=== PATIENT | female | born 1975 | race Caucasian/White ===

== ENCOUNTER → 2020-07-14 08:10 | Outpatient (CLI) | payer OTHER, SELFPAY ==
--- NOTE | ~2020-07-14 | MMUS_ITS ---
EXAMINATION: MM diagnostic ruperto BI w leatha, US breast BI limited HISTORY: Palpable breast lumps TECHNIQUE: Additional 3-D tomosynthesis images of the breasts were performed and synthetic 2-D images were generated. CAD analysis was submitted and interpreted. High resolution bilateral breast ultraso und was performed. COMPARISON: Comparison to multiple prior studies sequentially, with oldest reviewed study dated 09/02. BREAST PARENCHYMAL COMPOSITION: Breast composed of scattered areas of fibroglandular density. FINDINGS: MAMMOGRAPHIC FINDINGS: There is a tissue marker in the upper outer quadrant of the left breast consistent with previous biop sy site. This finding is unchanged compared with 02/02/2019. There are no new masses, calcifications o r architectural distortion. ULTRASOUND: Limited right breast ultrasound: Normal heterogeneous echotexture without focal solid or cystic mass. Limited left breast ultrasound: At 12:00, 4 cm from the nipple, there is a cluster of cysts measuring up to 4 mm in aggregate. At 12:00, 3 cm from the nipple, there is an irregular hypoechoic structure containing a tissue marker, consistent with fibrosis at previous biopsy site. This was biopsy proven benign per history. IMPRESSION: 1. No mammographic evidence for malignancy in either breast. 2. Routine yearly screening mammogram and regular clinical breast examination are recommended. BI-RADS Category 2: Benign finding(s). Reviewed, dictated and finalized at location A. CTOR OF ENTERTAINMENT IMPRESSION: 1. No mammographic evidence for malignancy in either breast. 2. Routine yearly screening mammogram and regular clinical breast examination a re recommended. BI-RADS Category 2: Benign finding(s).
== END ==
PROVIDERS: PCP Nurse Practitioner Family; Visit Provider Nurse Practitioner Family
DX: N63.0 Unspecified lump in unspecified breast (principal)
CPT/HCPCS: 76642; 77062; 77066; G0279

== ENCOUNTER 2021-03-19 13:05 | Outpatient (CLI) | payer OTHER, SELFPAY ==
--- NOTE | ~2021-03-19 | US_ITS ---
EXAMINATION: US thyroid EXAM DATE: 03/19/2021 13:21 INDICATION: Other specified symptoms and signs involving the circulatory. Throat fullness, hypothyroi dism. TECHNIQUE: Multiple grayscale and Doppler images of the thyroid were obtained (by a technologist who performed the scan) and subsequently reviewed. Individual nodules and recommendations may be reporte d in accordance with TI-RADS system as designated by the 2017 ACR White Paper TI-RADS committee. The re is no prior study for comparison. FINDINGS: The right thyroid lobe measures 3.0 x 0.8 x 0.8 cm, the left measuring 2.0 x 1.0 x 0.6 cm. There is h omogeneous thyroid echogenicity. No suspicious focal thyroid nodules are identified. IMPRESSION: 1. Unremarkable thyroid ultrasound exam. Reviewed, dictated and finalized at location B.
== END 2021-03-19 13:06 ==
PROVIDERS: PCP Nurse Practitioner Family; Visit Provider Nurse Practitioner Family
DX: R09.89 Other specified symptoms and signs involving the circulatory and respiratory systems (principal); E03.9 Hypothyroidism, unspecified
CPT/HCPCS: 76536

== ENCOUNTER 2024-10-26 07:19 | Outpatient (CLI) | payer OTHER, SELFPAY ==
--- NOTE | ~2024-10-26 | MM_ITS ---
PROCEDURE: MM SCREENING SHELBY BI W MARYAM INDICATION: Asymptomatic, referred for screening mammogram COMPARISON: 02/02/2019 through 08/18/2009 TECHNIQUE: Digital breast tomosynthesis craniocaudal and mediolateral oblique views of Both breasts w ere obtained with computer-aided detection to assist in interpretation of the study. FINDINGS: There are scattered areas of fibroglandular density. No focal dominant mass, architectural distortion, or suspicious microcalcifications are identified. There are no features to suggest malignancy. IMPRESSION: No evidence of malignancy in the breast. Recommend continued screening mammography BI-RADS 1, NEGATIVE Reviewed, dictated and finalized at location B.
--- OUTSIDE RECORDS SUMMARY | 2024-10-26 07:24 | XMS_ITS | Clinical Summary ---
Author Organization [facility] Address [address], [facility] [address] [place] [address] Phone Care Team Providers Care Head Of Acquisitions Name Role Phone Lanette Greene DIRECTOR CHILD ABUSE THERAPY Primary Care Provider [phone] Reg Dang MD Unavailable Allergies Active Allergy Reactions Criticality Noted Date Comments Amlodipine Swelling Low 04/14/2018 Dimethicone-Zinc Oxide Unknown 11/29/2016 Hydrochlorothiazide Anaphylaxis,Swelling High 2020 Ketotifen Fumarate Itching Low 04/03/2018 Latex Rash Low 02/11/2018 Levothyroxine Anaphylaxis,Swelling High 02/28/2021 Lisinopril Other (see Comments) 04/14/2018 Metformin Swelling,Other (see Comments) High 02/09/2019 Patient stated that there are swelling in the traot area. Naproxen Other (see Comments),Unknown 04/07/2014 Ear ringing Pantoprazole Other (see Comments) 07/01/2021 Penicillins Unknown 11/29/2016 Vitamin B12 Unknown 11/29/2016 Medications White Petrolatum-Mine ral Oil (Refresh Lacri-Lube) Ointment as needed. Active thyroid (ARMOUR) 30 MG Tablet Take 30 mg by mouth daily. 04/07/2024 Active POTASSIUM PO Take 1 Tablet by mouth daily. 03/26/2022 Active Cinnamon 500 MG Capsule 07/24/2021 Active Cholecalciferol (Dialyvite Vitamin D 5000) 125 mcg Capsule Take 125 mcg by mouth daily. Active Apple Cider Vinegar 300 MG Tablet 08/13/2021 Active fluticasone (FLONASE) 50 MCG/ACT Suspension 1-2 Sprays by Nasal route daily. 07/28/2021 Active Multi Vitamin/Mineral s Tablet Active triamcinolone acetonide (NASACORT) 55 MCG/ACT Aerosol 2 Sprays by Nasal route. Active loratadine (CLARITIN) 10 MG Tablet Take 10 mg by mouth daily. Active ELITE ZINC PO Active Magnesium Oxide -Mg Supplement 250 MG Tablet Take 250 mg by mouth. Active losartan (COZAAR) 100 MG Tablet Take 100 mg by mouth daily. 04/23/2024 Active Lancets (OneTouch Delica Plus [id number]) Misc TEST D 02/08/2019 Act alesia Lancets (OneTouch Delica Plus [id number]) Misc TEST ONCE DAILY DIRECTED 02/02/2020 Active Ascorbic Acid (Vitamin C) 500 MG Chewable Tablet Take 2 Tablets by mouth. 06/23/2018 Active Blood Glucose Monitoring Suppl (ONE TOUCH ULTRA 2) w/Device Kit TEST D 02/08/2019 Active DULoxetine (CYMBALTA) [address] Particles Take 60 mg by mouth daily. Active Ferrous Sulfate 90 (18 Fe) MG Tablet 11/04/2021 Active Active Problems Problem Noted Date Diagnosed Date HTN (hypertension) 07/29/2024 Iron deficiency anemia, unspecified 06/07/2024 Elevated blood pressure reading 05/28/2024 Anemia of unknown etiology 05/28/2024 Thrombocytosis 05/28/2024 Encounters Date Type Department Care Team Description 07/29/2024 8:50 AM PIPELINE GANG SUPERVISOR Lab [facility] [address] [phone] Lab, [facility] Iron deficiency anemia, unspecified iron deficiency anemia type; Thrombocytosis 07/29/2024 8:00 AM PIPELINE GANG SUPERVISOR Office Visit [facility] [address] [phone] Tala Bautista, DIRECTOR CHILD ABUSE THERAPY, MARINE STRUCTURAL WELDER Iron deficiency anemia due to chronic blood loss (Primary Dx); Thrombocytosis 07/29/2024 Travel from Last 3 Months Family History Medical History Relation Name Comments Diabetes Brother 2 Heart Disease Brother 2 Hypertension Brother 2 Colon Cancer Father Hypertension Mother Relation Name Status Comments Brother 1 Alive Brother 2 Alive Father Mother Alive Social History Tobacco Use Types Packs/Day Years Used Date Smoking Tobacco: Never Smokeless Tobacco: Never Tobacco Cessation:Counseling Given: Not Answered Alcohol Use Standard Drinks/Week Comments Never 0 (1 standard drink = 0.6 oz pur e alcohol) Comments Unknown Sex and Gender Information Value Date Recorded Sex Assigned at Not on file Legal Sex Female 2:38 PM CDT Gender Identity Not on file Sexual Orientation Not on file Last Filed Vital Signs Vital Sign Reading Time Taken Comments Blood Pressure 148/88 07/29/2024 7:58 AM PIPELINE GANG SUPERVISOR Pulse 95 07/29/2024 7:58 AM PIPELINE GANG SUPERVISOR Temperature 36.8 C (98.2 F) 07/29/2024 7:58 AM PIPELINE GANG SUPERVISOR Respiratory Rate 18 07/29/2024 7:58 AM PIPELINE GANG SUPERVISOR Oxygen Saturation 99% 07/29/2024 7:58 AM PIPELINE GANG SUPERVISOR Inhaled Oxygen Concentration - - Weight 69.2 kg (152 lb 9.6 oz) 07/29/2024 7:58 A M PIPELINE GANG SUPERVISOR Height 149.9 cm (4' 11) 07/29/2024 7:58 AM PIPELINE GANG SUPERVISOR Body Mass Index 30.82 07/29/2024 7:58 AM PIPELINE GANG SUPERVISOR Plan of Treatment Upcoming Encounters Date Type Department Care Team (Late st Contact Info) Description 10/28/2024 8:00 AM CDT Office Visit [facility] [address] [phone] Reg Dang MD [address] [place] [address] [place] [phone] Health Maintenance Due Date Last Done Comments Hepatitis C Virus (HCV) Screening 1976 Mammogram 1976 TdaP Immunization 1976 Hepatitis B Immunization (1 of 3 - 19+ 3-dose series) 01/25/1995 Pap Smear 01/25/1997 Cervical Cancer Screening (CCS) 01/25/2006 HPV/Cotest 01/25/2006 Discussion re Starting/Frequ ency of Mammograms 2016 Colonoscopy 01/25/2021 Colorectal Cancer Screening 01/25/2021 SARS-COV-2 Immunization ( season) 2024 Influenza Immunization (Seas on Ended) 2025 Respiratory Syncytial Virus (RSV) Immunization (Adult) (1 - 1-dose 75+ series) 01/25/2051 Human Papillomavirus (HPV) Immunization Aged Out No longer eligible b ased on patient's age to complete this topic Meningococcal Immunization (ACWY) Aged Out No longer eligible based on patient's age to complete this topic Pneumococcal Immunization Combined Aged Out No longer eligible based on patient's age to complete this topic Rotavirus Immunization Aged Out No lo nger eligible based on patient's age to complete this topic Procedures Procedure Name Priority Date/Time Associated Diagnosis Comments CBC WITH AUTO DIFF OH Routine 07/29/2024 8:51 AM PIPELINE GANG SUPERVISOR CMP (COMPREHENSIVE METABOLIC PANEL) Routine 07/29/2024 8:51 AM PIPELINE GANG SUPERVISOR Iron deficiency anemia, unspecified iron deficiency anemia type Thrombocytosis IRON W/ IRON BINDING CAPACITY OH Routine 07/29/2024 8:51 AM PIPELINE GANG SUPERVISOR Iron deficiency anemia, unspecified iron deficiency anemia type Thrombocytosis FERRITIN Routine 07/29/2024 8:51 AM PIPELINE GANG SUPERVISOR Iron deficiency anemia, unspecified iron deficiency anemia type Thrombocytosis from Last 3 Months Results * IRON W/ IRON BINDING CAPACITY OH (07/29/2024 8:51 AM PIPELINE GANG SUPERVISOR) IRON 79 50 - 212 ug/dL CANCER MUD MIXER OPERATOR [facility] UIBC 290 155 - 355 ug/dL [facility] TIBC 369 261 - 478 ug/dl [facility]UD [facility]ER [facility] % Saturation 21 20 - 50 % [facility]UD [facility] 07/29/2024 8:51 AM PIPELINE GANG SUPERVISOR Narrative CANCER MUD MIXER OPERATOR [facility] - 07/29/2024 9:32 AM PIPELINE GANG SUPERVISOR Release to patient->Immediate Tala Bautista APRN, MARINE STRUCTURAL WELDER LAB SEND OUTS Final Result CANCER MUD MIXER OPERATOR [facility] [place] [address], * (ABNORMAL) CBC WITH AUTO DIFF [place] (07/29/2024 8:51 AM PIPELINE GANG SUPERVISOR) WBC 7.8 4.0 - 10.0 10*3/uL CANCER MUD MIXER OPERATOR [facility] HGB 13.1 11.2 - 15.7 g/dL CANCER MUD MIXER OPERATOR [facility] HCT 39.9 34.1 - 44.9 % CANCER MUD MIXER OPERATOR [facility] PLT 326 163 - 369 10*3/uL CANCER MUD MIXER OPERATOR [facility] MPV 9.4 9.4 - 12.4 fL CANCER MUD MIXER OPERATOR [facility] RBC 4.54 3.93 - 5.22 10*6/uL CANCER MUD MIXER OPERATOR [facility] MCV 88 79 - 95 fL CANCER MUD MIXER OPERATOR [facility] MCH 28.9 25.6 - 32.2 pg CANCER MUD MIXER OPERATOR [facility] MCHC 32.8 32.2 - 36.5 g/dL CANCER MUD MIXER OPERATOR [facility] RDW 17.0(H) 11.6 - 14.4 % CANCER MUD MIXER OPERATOR [facility] Neutrophils % 53.0 36.0 - 66.0 % CANCER MUD MIXER OPERATOR [facility] Lymphocytes % 37.0 19.0 - 40.0 % CANCER MUD MIXER OPERATOR [facility] Monocytes % 6.3 4.1 - 12.1 % CANCER MUD MIXER OPERATOR [facility] Eosinophils % 2.8 0.0 - 3.5 % CANCER MUD MIXER OPERATOR [facility] Basophils % 0.5 0.0 - 1.0 % CANCER MUD MIXER OPERATOR [facility] Absolute Neutrophils 4.1 1.4 - 6.6 10*3/uL CANCER MUD MIXER OPERATOR [facility] Absolute Lymphocytes 2.9 0.8 - 4.0 10*3/uL CANCER MUD MIXER OPERATOR [facility] Absolute Monocytes 0.5 0.2 - 1.2 10*3/uL CANCER MUD MIXER OPERATOR [facility] Absolute Eosinophils 0.2 0.0 - 0.4 10*3/uL CANCER MUD MIXER OPERATOR [facility] Absolute Basophils 0.0 0.0 - 0.1 10*3/uL CANCER MUD MIXER OPERATOR [facility] 07/29/2024 8:51 AM PIPELINE GANG SUPERVISOR us Tala Bautista DIRECTOR CHILD ABUSE THERAPY, MARINE STRUCTURAL WELDER LAB SEND OUTS Final Result CANCER MUD MIXER OPERATOR [facility] [place] [address], [place] [phone] * FERRITIN (07/29/2024 8:51 AM PIPELINE GANG SUPERVISOR) Ferritin 249 11 - 307 ng/mL [facility] MUD MIXER OPERATOR [facility] Blood 07/29/2024 8:51 AM PIPELINE GANG SUPERVISOR Narrative CANCER MUD MIXER OPERATOR [facility] - 07/29/2024 3:23 PM PIPELINE GANG SUPERVISOR Release to patient->Immediate Tala Bautista DIRECTOR CHILD ABUSE THERAPY, MARINE STRUCTURAL WELDER CHEMISTRY ORDERABLES Final Result CANCER MUD MIXER OPERATOR [facility] [place] [address], * (ABNORMAL) CMP (COMPREHENSIVE METABOLIC PANEL) (07/29/2024 8:51 AM PIPELINE GANG SUPERVISOR) Glucose 128(H) 70 - 105 mg/dL [facility] Blood Urea Nitrogen 12 7 - 25 mg/dL [facility] MUD [facility]IXER [facility] Creatinine 0.6 0.6 - 1.2 mg/dL [facility] MUD [facility]IX[facility] Sodium 137 136 - 145 mEq/L [facility] MUD [facility] Potassium 4.3 3.5 - 5.1 mEq/L [facility] MUD [facility] Chloride 99 98 - 107 mEq/L [facility] MUD [facility] Bicarbonate 25 21 - 31 mEq/L [facility] MUD [facility]IX[facility] Total Bilirubin 0.3 0.3 - 1.0 mg/dL [facility] MUD [facility]IX[facility] Alk. Phosphatase 69 34 - 104 U/L [facility] MUD [facility]IX[facility] Aspartate Aminotransferase 27 13 - 39 U/L [facility] MUD [facility] Alanine Aminotransferase 33 7 - 52 U/L [facility] MUD [facility]IX[facility] Total Protein 7.0 6.4 - 8.9 g/dL [facility] MUD [facility]IX[facility] Albumin 4.5 3.5 - 5.7 g/dL [facility] MUD [facility]IX[facility] Calcium 9.5 8.6 - 10.3 mg/dL [facility] MUD MIXER [facility] Anion Gap 17.3(H) 7.0 - 15.0 mEq/L [facility] MUD [facility]IX[facility] Globulin 2.5 2.0 - 3.5 g/dL CANCER MUD MIXER OPERATOR [facility] EGFR 110 >60 ml/min/1. 73m2 CANCER MUD MIXER OPERATOR [facility] Comment: This eGFR is calculated using 2020 CKD-EPI Creatinine equation without race modifier based on the NKF-ASN task force recommendations Blood 07/29/2024 8:5 1 AM PIPELINE GANG SUPERVISOR Narrative CANCER MUD MIXER OPERATOR [facility] - 07/29/2024 9:32 AM PIPELINE GANG SUPERVISOR Release to patient->Immediate IS THE PATIENT REQUIRED TO BE FASTING FOR 8 HOURS?->No us Tala Bautista DIRECTOR CHILD ABUSE THERAPY, MARINE STRUCTURAL WELDER CHEMISTRY ORDERABLES Final Result CANCER MUD MIXER OPERATOR [facility] [place] [address], [place] [phone] from Last 3 Months Insurance Care Teams Head Of Acquisitions Relationship Specialty Start Date End Date Lanette Greene [place] [address] [place] [address] PCP - General Advanced Practice Nurse 05/13/24 Reg Dang MD [address] [place] [phone] Consulting Physician Oncology 05/13/24
--- OUTSIDE RECORDS SUMMARY | 2024-10-26 07:24 | XMS_ITS | Clinical Summary ---
Author Organization [facility] Address [address] [place] [address] Care Team Providers Care Electronic Equipment Repairer Name Role Phone Koby Hernandez Primary Care Provider Allergies Active Allergy Reactions Criticality Noted Date Comments Amlodipine Swelling Low 04/24/2018 Ketotifen Fumarate Itching Low 04/03/2018 Latex Rash Low 02/11/2018 Metformin Swelling,Other (See Comments) High 03/11/2019 Patient stated that there are swelling in the traot area. Naproxen Other (See Comments) 02/11/2018 Ear ringing Vitamin B12 With Intrinsic Factor Anaphylaxis High 02/11/2018 Medications DULoxetine (CYMBALTA) 60 mg Capsule, Delayed Release(E.C.) TAKE 1 CAPSULE BY MOUTH EVERY DAY 1 8 Active SYNTHROID 50 mcg tablet 8 Active ascorbic acid (VITAMIN C ORAL) Take by mouth daily. Active FLAXSEED ORAL by [facility].(Non-Drug ; Combo Route) route daily. Active Lactobacillus acidophilus (ACIDOPHILUS) Tablet, Chewable Take 2 Tablets by mouth daily. Active hydroCHLOROthiaz ursula 25 mg tablet 1 8 Active metoprolol tartrate (LOPRESSOR) 25 mg tablet TK 1/2 T PO BID 1 9 Active meclizine (ANTIVERT) 25 mg tablet 0 9 Active ONETOUCH ULTRA BLUE TEST STRIP Strip TEST D 3 9 Active ONETOUCH ULTRA2 METER TEST D 0 9 Active glimepiride (AMARYL) 1 mg tablet TK 1 T PO QAM BEFORE BREAKFAST 5 9 Active ONETOUCH DELICA PLUS LANCET 30 gauge TEST D 3 9 Active Active Problems Problem Noted Date Diagnosed Date Fibroadenoma of breast, left 02/24/2018 Mastodynia 02/17/2018 Resolved Problems Problem Noted Date Diagnosed Date Resolved Date Abnormal ultrasound of breast 02/17/2018 10/01/2018 Abnormal mammogram 02/17/2018 9 Lump of left breast 02/17/2018 10/02/19 19 Social History Tobacco Use Types Packs/Day Years Used Date Smoking Tobacco: Never Smokeless Tobacco: Never Alcohol Use Standard Drinks/Week Comments No 0 (1 standard drink = 0.6 oz pur e alcohol) Comments No Sex and Gender Information Value Date Recorded Sex Assigned at Not on file Legal Sex Female 4:12 PM CDT Gender Identity Not on file Sexual Orientation Not on file Last Filed Vital Signs Vital Sign Reading Time Taken Comments Blood Pressure 127/97 03/11/2019 2:26 PM CDT Pulse 78 03/11/2019 2:26 PM CDT Temperature 36.8 C (98.3 F) 03/11/2019 2:26 PM CDT Respiratory Rate - - Oxygen Saturation 97% 03/11/2019 2:26 PM CDT Inhaled Oxygen Concentration - - Weight 71.5 kg (157 lb 9.6 oz) 03/11/2019 2:26 P M CDT Height 149.9 cm (4' 11) 03/11/2019 2:26 PM CDT Body Mass Index 31.83 03/11/2019 2:26 PM CDT Plan of Treatment Health Maintenance Due Date Last Done Comments DTAP/TDAP/TD VACCINES (1 - Tdap) 01/25/1995 HEPATITIS B VACCINES (1 of 3 - 19+ 3-dose series) 01/25/1995 HPV/Cotest (21-29) 01/25/1997 CERVICAL CANCER SCREENING 01/25/2006 HPV/Cotest (30-65) 01/25/2006 PAP SMEAR 01/25/2006 BREAST CANCER SCREENING 02/10/2020 02/10/20 19, 02/09/2018, 01/30/2018 COLORECTAL SCREENING 01/25/2021 Colorectal Cancer Screening 01/25/2021 FIT-DNA Q 3 years 01/25/2021 FIT/FOBT Q 1 year 01/25/2021 Flex Sig/CT Colonography Q 5 years 01/25/2021 INFLUENZA VACCINE (#1) 2023 Procedures Procedure Name Priority Date/Time Associated Diagnosis Comments MAMMOGRAM REPORT Routine 02/09/2019 from Last 3 Months or Most Recently Relevant to Health Maintenance Results * MAMMOGRAM REPORT (02/09/2019) us Abstract Provider MAMMO ORDERABLES Edited Result - Final from Last 3 Months or Most Recently Relevant to Health Maintenance Insurance Care Teams Electronic Equipment Repairer Relationship Specialty Start Date End Date [place] [address] PCP - General Family Practice 04/24/18
== END 2024-10-26 07:20 | disposition home or self-care (01) ==
LOC: CHSIMG 07:21
PROVIDERS: PCP Nurse Practitioner; Visit Provider Nurse Practitioner
DX: Z12.31 Encounter for screening mammogram for malignant neoplasm of breast (principal)
CPT/HCPCS: 77063; 77067

== ENCOUNTER 2025-04-04 00:27 | Day surgery (SDC) | payer OTHER, SELFPAY ==
[2025-03-28 10:59] VITALS: BMI 30.6
--- NOTE | 2025-03-29 11:40 | SUR.PREOP ---
[facility] has started construction of its new state of the art ER which will open Spring 2026. With this, we anticipate parking may be a challenge for some our surgical patients and families. Parking spaces are limited but are available for all Surgical, obstetrics, and ER patients sharing this lot. If you arrive and find you are having a hard time finding a parking space, please note that we understand the challenges, please drive around the hospital and park near Hospital Entrance 1. When you enter this entrance, you can ask a volunteer to direct or take you back to the surgical waiting area to check in. We appreciate everyone?s understanding of these expected challenges while we build for your future. Report to the Outpatient Waiting Room, entrance under the green pavilion located off [address], at time 6AM_ on date _04/04/25_. Planned Procedure Time: _730AM__.? Time changes happen often and if your time is changed the preop area will call you the afternoon before. - You and your visitor will be asked to self-screen and do not enter if you have any COVID symptoms. Please call surgeon if you need to reschedule. - A mask is optional within the hospital at this time. Patients may have clear liquids (water, carbonated beverages, clear teas, apple juice) until 3 hours prior to surgery with a maximum of 20 ounces. - No food from midnight until time of surgery and no smoking, or chewing tobacco (or any form of nicotine). No chewing gum, candy or mints. Take only the following medications with a SIP of water on the morning of surgery: __Armour thyroid___ DO NOT STOP ANY OF YOUR OTHER PRESCRIPTION MEDICATIONS PRIOR TO SURGERY EXCEPT THE FOLLOWING Hold all vitamins and supplements for 3 days per anesthesiologist. Medications to discontinue per physician __none__ Date to take last dose of vitamins is _03/31/25___ Please no make-up, nail kinyarwanda, hairspray, perfume, deodorant, or body powder the day of surgery.? No jewelry (including any body piercings) or valuables the day of surgery, leave them at home.? Please take a shower or bath the night before, or the morning of, surgery with an antibacterial soap.? Wear comfortable, loose fitting clothing.? - Jewelry must be removed prior to entering the operating room.? Rings and piercings that are not removed may be cut off. - The hospital will not accept responsibility for valuables.? - Please leave all valuables, including medications, at home the day of surgery. If you are going home after surgery, a licensed six horse hitch driver must drive you home.? - NO public transportation without another adult if you receive anesthesia. - We recommend that an adult stay with you for 24 hours following discharge. - We also recommend that you do not drive, make important decision, drink alcoholic beverages, or take any drugs that were not prescribed by your health care provider for at least 24 hours after your discharge time. Follow any additional instructions given to you from your surgeon. Telephone instructions given to _Amy_and asked if any additional questions and then verbalized understanding. Patient advised to call surgeon office or pre surgery nurse liaison [phone] if any additional questions.
--- NOTE | 2025-04-03 15:54 | P.HP_ITS ---
H&P: HPI History of Present Illness Date/Time: 04/03/25 15:54 Chief Complaint: AUB Narrative: Amy is a 50yo G0, who presents for scheduled surgery. She has a normal pap 11/2024. She had not seen WILL CALL ORDER CLERK in many years and is VERY nervous for these types of appointment. She reports her cycles are regular, but have been very heavy in the last couple years. She does have cramping with her periods. She reports being diagnosed with severe iron def anemia, sees heme and had IV iron transfusions (recent hgb >12). Since the infusion, her periods actually seem to have lightened some, but still has clots. She denies any pelvic pain. She had blood work and WILL CALL ORDER CLERK US. She does how low iron, hormones are still normal range though. WILL CALL ORDER CLERK US showed 2.5cm fibroid; uterus slightly enlarged; did have thickened endometrium. She is occasionally sexually active, has h/o tubal ligation. Review of Systems Constitutional: Constitutional: Denies chills, Denies fever(s) and Denies headache(s) Eyes: Eyes: Denies change in vision ENT: Denies dizziness and Denies headache(s) Cardiovascular: Cardiovascular: Denies chest pain and Denies dyspnea Respiratory: Respiratory: Denies cough and Denies dyspnea Gastrointestinal: Gastrointestinal: Denies abdominal pain and Denies change in stool character Genitourinary: Genitourinary: Reports abnormal menses, Reports menorrhagia, Reports pelvic pain, Denies vaginal discharge, Denies vaginal odor and Denies vaginal pruritus Neurologic: Denies dizziness and Denies headache(s) Psychiatric: Psychiatric: Denies anxiety and Denies depression [facility] Past Medical History Medical History Idiopathic hypersomnia Depression Obesity Thyroid disorder Hypertension Headache, migraine Diabetes Arthritis Anxiety Anemia Allergies Surgical History Surgical History H/O tubal ligation Status post cryoablation fibrodemia in breast removed [place] teeth extracted Family History Family History (Updated 01/27/25 @ 10:55 by Hiram Jasso MA) Mother Colon cancer Hypertension Grandparent Alcoholism Skin cancer Breast cancer Father Liver cancer Hypertension Sibling Hypertension Heart disease Diabetes mellitus Aorta disorder brother Social History Social History Smoking status: Never smoker Alcohol intake: never Substance use: never Substance use type: does not use Do You Feel Safe in your Home?: Yes Lack of Transportation: No Lack of Food: Never True Current Housing: I Have Housing Concerned About Future Housing: No Difficulty Paying Gas/Electric Bills: No Difficulty Paying for Meds: No Currently Unemployed: No Education: Master's Degree or Higher Difficulty w/ Childcare or Family Care: No Living arrangements: with family Occupation/Education: occupation Additional occupation/education comments: homemaker Spiritual care concerns: No Meds Home Medications and Allergies Home Medications ?Medication ?Instructions ?Recorded ?Confirmed ?Type ascorbic acid (vitamin C) 500 mg 500 mg PO DAILY 12/2303/28/25 History capsule duloxetine 60 mg capsule,delayed 60 mg PO HS 12/23/24 03/28/25 History release ferrous sulfate 137 mg (45 mg 137 mg PO DAILY 12/23/24 03/28/25 History iron) tablet,extended release losartan 100 mg tablet 100 mg PO DAILY 12/23/2408/17 History lutein 20 mg capsule 20 mg PO DAILY 12/23/2408/17 History magnesium 250 mg tablet 250 mg PO DAILY 12/23/2408/17 History multivitamin 1 tablet PO DAILY 12/23/24 1 05/28/24 History thyroid (pork) 30 mg tablet 30 mg PO DAILY 12/23/24 History ([place] Thyroid) Allergies Allergy/AdvReac Type Severity Reaction Status Date / Time amlodipine Allergy Unknown throat Verified 03/28/25 10:57 swollen ketotifen Allergy Unknown swelling Verified 03/28/25 10:57 latex Allergy Unknown Rash Verified 03/28/25 10:57 Penicillins Allergy Unknown Unknown Verified 03/28/25 10:57 cyanocobalamin (vitamin B12) AdvReac Severe Anaphylaxis Verified 03/28/25 10:57 levothyroxine AdvReac Severe throat Verified 03/28/25 10:57 swelling metformin AdvReac Severe throat Verified 03/28/25 10:57 swelling hydrochlorothiazide AdvReac Intermediate throat Verified 03/28/25 10:57 swelling lisinopril AdvReac Intermediate Dizziness Verified 03/28/25 10:57 pantoprazole AdvReac Intermediate shaking Verified 03/28/25 10:57 and nerve pain dimethicone AdvReac Unknown Unknown Verified 03/28/25 10:57 zinc oxide AdvReac Unknown Unknown Verified 03/28/25 10:57 NAPROXEN SODIUM Allergy Mild RINGING IN Uncoded 01/27/25 10:54 EARS Exam Const: General: cooperative, healthy appearing, comfortable and no acute distress Orientation/consciousness: patient oriented x3 Resp: Effort & Inspection: normal respiratory effort Cardio: Rate: regular rate GI: Inspection: normal to inspection GI Palp: No abdominal tenderness and Yes Soft to palpation : Other: deferred to OR Skin: General skin exam: normal color Neuro: General: patient oriented x3 Extrem: General: normal to inspection Psych: Appearance: grossly normal Affect: normal affect Attitude: cooperative Assessment and Plan Assessment and plan (1) Menorrhagia: Code(s): N92.0 - Excessive and frequent menstruation with regular cycle Status: Acute Plan - discussed labs work and US findings; likely AUB-O but does have a small fibroid - recommend Hysteroscopy with D&C for endometrial sampling - Risks and benefits and alternatives discussed in detail - once sampling confirmed normal, AUB options include progesterone options, ablation, or hysterectomy-- or we could do nothing and she just take iron to prevent anemia -- pt unsure and will let us know what she would like to proceed with
--- OUTSIDE RECORDS SUMMARY | 2025-04-04 00:29 | XMS_ITS | Encounter Summary ---
Author Organization [facility] Address [address] [place] [address] Care Team Providers Care Fiberglass Product Tester Name Role Phone Harjinder Devine MD Unavailable [phone] Ora Jay FIBERGLASS PRODUCT TESTER Primary Care Provider Unavaila Lanette Hoover NP Primary Care Provider [phone] Encounter Details Date Type Department Care Team (Late Contact Info) Description 05/29/2020 MyChart Message Enc [facility] [address] [place] [address] Ora Jay NP RE: Question Social History Tobacco Use Types Packs/Day Years Used Date Smoking Tobacco: Never Smokeless Tobacco: Never PHQ-2 Answer Date Recorded PHQ-2 Score - If the patient scores above 3, please move on to questions 3-9 1 12/13/2019 Comments No Sex and Gender Information Value Date Recorded Sex Assigned at Not on file Legal Sex Female 10:34 PM CDT Gender Identity Not on file Sexual Orientation Not on file COVID-19 Exposure Response Date Recorded In the last month, have you been in contact with someone who was confirmed or suspected to have Coronavirus / COVID-19? No / Unsure 05/23/2020 2:54 PM STAMPING MILL TENDER documented as of this encounter Plan of Treatment Upcoming Encounters Date Type Department Care Team ([facility] Contact Info) Description 04/28/2025 7:40 AM STAMPING MILL TENDER Office Visit [facility] 5 [place] [address] [place] [address] documented as of this encounter Visit Diagnoses Not on filedocumented in this encounter Additional Health Concerns Assessment Noted Time PHQ-9 Depression Total Score: 10 12/12/ 020 11:12 AM CDT documented as of this encounter Care Teams Fiberglass Product Tester Relationship Specialty Start Date End Date Ora Jay, FIBERGLASS PRODUCT TESTER PCP - General NURSE PRACTITIONER 12/13/19 10/22/23 Lanette Greene NP [address] [place] [address] PCP - General NURSE PRACTITIONER 10/23/23 Harjinder Devine MD Sathish Internet Marketing Manager CARDIOVASCULAR DISEASE 06/15/18 documented as of this encounter
--- OUTSIDE RECORDS SUMMARY | 2025-04-04 00:29 | XMS_ITS | Encounter Summary ---
Author Organization [facility] Address [address] [place] [address] Care Team Providers Care Canal Equipment Maintenance Supervisor Name Role Phone Harjinder Devine MD Unavailable [phone] Ora Jay CHIEF OF PRODUCTION Primary Care Provider Unavaila Lanette Hoover NP Primary Care Provider [phone] Encounter Details Date Type Department Care Team (Late st Contact Info) Description 06/27/2020 MyChart Message Enc [address] [address] Ora Jay NP RE: Medication Questions Social History Tobacco Use Types Packs/Day Years [...] on file Sexual Orientation Not on file documented as of this encounter Plan of Treatment Upcoming Encounters Date Type Department Care Team (Late st Contact Info) Description 04/28/2025 7:40 AM CROWNING INSPECTOR Office Visit [address] [address] Lanette Greene NP [address] [place] [address] documented as of this encounter Visit Diagnoses Not on filedocumented in this encounter Additional Health Concerns Assessment Noted Time PHQ-9 Depression Total Score: 10 020 11:12 AM CDT documented as of this encounter Care Teams Canal Equipment Maintenance Supervisor Relationship Specialty Start Date End Date Ora Jay NP PCP - General NURSE PRACTITIONER 12/13/19 10/22/23 Lanette Greene NP [address] [place] [address] PCP - General NURSE PRACTITIONER 10/23/23 Harjinder Devine MD Sathish Marketing Communications Specialist CARDIOVASCULAR DISEASE 06/15/18 documented as of this encounter
--- OUTSIDE RECORDS SUMMARY | 2025-04-04 00:29 | XMS_ITS | Encounter Summary ---
Author Organization [facility] Address [address] [place] [address] Care Team Providers Care Sales Program Manager Name Role Phone Harjinder Devine MD Unavailable [phone] Selvin Greene NP Primary Care Provider [phone] Encounter Details Date Type Department Care Team (Late st Contact Info) Description 04/20/2024 Labels That Talkt [address] Enc [facility] - [place] 5 [place] [address] Selvin Greene NP 5 [place] [address] Losartan 100 mg Social History Tobacco Use Types Packs/Day Years Used Date Smoking Tobacco: Never Passive Smoke Exposure: Never Smokeless Tobacco: Never Alcohol Use Standard Drinks/Week Comments Never 0 (1 standard drink = 0.6 oz pur e alcohol) PHQ-2 Answer Date Recorded Patient Health Questionnaire-2 Score 2 04/15/2024 Comments No Sex and Gender Information Value Date Recorded Sex Assigned at Not on file Legal Sex Female 10:34 PM CDT Gender Identity Not on file Sexual Orientation Not on file documented as of this encounter Progress Notes * Francine Britt MA - 04/23/2024 9:02 AM CST Sent to selvin ICAL THERAPY ASSISTANT INSTRUCTOR * Kirill Moser - 04/23/2024 7:21 AM CST Pt called today and stated that she would like her Losartan 100 mg sent to [facility] [address] in [place]. ICAL THERAPY ASSISTANT INSTRUCTOR documented in this encounter Plan of Treatment Upcoming Encounters Date Type Department Care Team (Late st Contact Info) Description 04/28/2025 7:40 AM PHYSICAL THERAPY ASSISTANT INSTRUCTOR Office Visit [facility] - [place] 5 [place] [address] [address]vin Greene [place] [address] documented as of this encounter Visit Diagnoses Not on filedocumented in this encounter Additional Health Concerns Assessment Noted Time PHQ-9 Depression Total Score: 2 04/15/20 24 8:10 AM PHYSICAL THERAPY ASSISTANT INSTRUCTOR documented as of this encounter Care Teams Sales Program Manager Relationship Specialty Start Date End Date Selvin Greene NP [address] [place] [address] PCP - General NURSE PRACTITIONER 10/23/23 Harjinder Devine MD Sathish Accounts Payable Accountant CARDIOVASCULAR DISEASE 06/15/18 documented as of this encounter
--- OUTSIDE RECORDS SUMMARY | 2025-04-04 00:29 | XMS_ITS | Encounter Summary ---
Author Organization [facility] Address [address] [place] [address] Care Team Providers Care Historic Site Administrator Name Role Phone Harjinder Devine MD Unavailable [phone] Ora Jay OVERNIGHT CASHIER Primary Care Provider Unavaila Lanette Hoover OVERNIGHT CASHIER Primary Care Provider [phone] Encounter Details Date Type Department Care Team (Late st Contact Info) Description 08/28/2020 [email or web address] Message Enc [facility] Family Medicine [address] [address] Ora Jay, OVERNIGHT CASHIER RE: Other Social History Tobacco Use Types Packs/Day Years [...] have Coronavirus / COVID-19? No / Unsure 08/28/2020 6:39 AM CDT documented as of this encounter Progress Notes * David Miller MA - 08/29/2020 8:00 AM CDT Ora, Can you please review labs and see if Amy needs any additional labs? The lab actually called fromthis message yesterday because she called them about her lab orders. The director of cardiac cath lab that called said if any labs need to be done they will need new orders. documented in this encounter Plan of Treatment Upcoming Encounters Date Type Department Care Team (Late st Contact Info) Description 04/28/2025 7:40 AM MELTER HELPER Office Visit [facility] Family Medicine - [place] 5 [place] [address] Lanette Greene NP [address] [place] [address] documented as of this encounter Visit Diagnoses Not on filedocumented in this encounter Additional Health Concerns Assessment Noted Time PHQ-9 Depression Total Score: 10 020 11:12 AM CDT documented as of this encounter Care Teams Historic Site Administrator Relationship Specialty Start Date End Date Ora Jay NP PCP - General NURSE PRACTITIONER 12/13/19 10/22/23 Lanette Greene NP [address] [place] [address] PCP - General NURSE PRACTITIONER 10/23/23 Harjinder Devine MD Sathish Inspector Handbag Frames CARDIOVASCULAR DISEASE 06/15/18 documented as of this encounter
--- OUTSIDE RECORDS SUMMARY | 2025-04-04 00:29 | XMS_ITS | Encounter Summary ---
Author Organization [facility] Address [address] [place] [address] Care Team Providers Care Delimber Operator Name Role Phone Harjinder Devine MD Unavailable [phone] Ora Jay PATIENT CLERICAL ASSISTANT Primary Care Provider Unavaila Lanette Hoover PATIENT CLERICAL ASSISTANT Primary Care Provider [phone] Encounter Details Date Type Department Care Team (Late st Contact Info) Description 08/14/2020 [email or web address] Message Enc [facility] Family Medicine [address] [address] [employer], [facility] Provider RE: FW: RE: Lab Work Social History Tobacco Use Types Packs/Day Years [...] as of this encounter Progress Notes * Ora Jay NP - 08/17/2020 1:54 PM CDT I will increase her HCTZ to 25mg daily. Follow up in 2 weeks. * Charles Wilson RN - 08/17/2020 1:05 PM CDT Please advise. Thanks! * David Miller MA - 08/17/2020 7:16 AM CDT Please advise. documented in this encounter Plan of Treatment Upcoming Encounters Date Type Department Care Team (Late st Contact Info) Description 04/28/2025 7:40 AM AGRICULTURAL CONSULTANT Office Visit [facility] Family Medicine - [place] 5 [place] [address] Lanette Greene NP [address] [place] [address] documented as of this encounter Visit Diagnoses Diagnosis Essential hypertension Unspecified essential hypertension documented in this encounter Additional Health Concerns Assessment Noted Time PHQ-9 Depression Total Score: 10 020 11:12 AM CDT documented as of this encounter Care Teams Delimber Operator Relationship Specialty Start Date End Date Ora Jay NP PCP - General NURSE PRACTITIONER 12/13/19 10/22/23 Lanette Greene NP [address] [place] [address] PCP - General NURSE PRACTITIONER 10/23/23 Harjinder Devine MD Sathish Saturator Tender CARDIOVASCULAR DISEASE 06/15/18 documented as of this encounter
--- OUTSIDE RECORDS SUMMARY | 2025-04-04 00:29 | XMS_ITS | Encounter Summary ---
Author Organization [facility] Address [address] [place] [address] Care Team Providers Care Drycleaner Name Role Phone Harjinder Deivne MD Unavailable [phone] Ora Jay ELECTRONIC DIE MAKER Primary Care Provider Unavaila Lanette Hoover ELECTRONIC DIE MAKER Primary Care Provider [phone] Encounter Details Date Type Department Care Team (Late Contact Info) Description 12/16/2019 Nu[employer] Message Enc [facility] Family Medicine [address] [phone] Ora Jay, ELECTRONIC DIE MAKER Other Social History Tobacco Use Types Packs/Day [...] have Coronavirus / COVID-19? No / Unsure 12/13/2019 11:00 AM CDT documented as of this encounter Progress Notes * David Miller MA - 12/16/2019 11:08 AM CDT Please advise. documented in this encounter Plan of Treatment Upcoming Encounters Date Type Department Care Team (Late st Contact Info) Description 04/28/2025 7:40 AM AIR TRAFFIC COORDINATOR Office Visit [facility] Family Medicine - [place] 5 [place] [phone] Lanette Greene NP [address] [place] [address] documented as of this encounter Visit Diagnoses Not on filedocumented in this encounter Additional Health Concerns Assessment Noted Time PHQ-9 Depression Total Score: 10 020 11:12 AM CDT documented as of this encounter Care Teams Drycleaner Relationship Specialty Start Date End Date Ora Jay NP PCP - General NURSE PRACTITIONER 12/13/19 10/22/23 Lanette Greene NP [address] [place] [address] PCP - General NURSE PRACTITIONER 10/23/23 Harjinder Devine MD Sathish Mobile Equipment Mechanic CARDIOVASCULAR DISEASE 06/15/18 documented as of this encounter
--- OUTSIDE RECORDS SUMMARY | 2025-04-04 00:29 | XMS_ITS | Encounter Summary ---
Author Organization [facility] Address [address] [place] [address] Care Team Providers Care Ping Pong Table Assembler Name Role Phone Harjinder Devine MD Unavailable [phone] Ora Jay RECREATION THERAPY AIDES TEACHER Primary Care Provider Unavaila Lanette Hoover NP Primary Care Provider [phone] Encounter Details Date Type Department Care Team (Late st Contact Info) Description 07/16/2020 [employer] Message Enc [facility] Family Medicine [address] [address] Ora Jay NP RE: Medication Questions Social [...] Progress Notes * Ora Jay NP - 07/26/2020 8:47 PM CST Thank you. ENTER * David Miller MA - 07/26/2020 1:24 PM CST I did talk to Amy about this and she said she had to get a script filled so it would be hitting on the medication to trigger anything we needed to do. I have not seen anything since she had this script filled. ENTER * Ora Jay NP - 07/17/2020 9:04 AM CST The link she sent was for her information and not me. ENTER * David Miller MA - 07/17/2020 6:32 AM CST Do we know where this is at in regards to the appeal? ENTER documented in this encounter Plan of Treatment Upcoming Encounters Date Type Department Care Team (Late st Contact Info) Description 04/28/2025 7:40 AM CARPENTER Office Visit [facility] Family Medicine - [place] 5 [facility] [place] [phone] Lanette Greene NP 5 [place] [address] documented as of this encounter Visit Diagnoses Not on filedocumented in this encounter Additional Health Concerns Assessment Noted Time PHQ-9 Depression Total Score: 10 020 11:12 AM CDT documented as of this encounter Care Teams Ping Pong Table Assembler Relationship Specialty Start Date End Date Ora Jay NP PCP - General NURSE PRACTITIONER 12/13/19 10/22/23 Lanette Greene NP [address] [place] [address] PCP - General NURSE PRACTITIONER 10/23/23 Harjinder Devine MD Sathish Checking Department Supervisor CARDIOVASCULAR DISEASE 06/15/18 documented as of this encounter
--- OUTSIDE RECORDS SUMMARY | 2025-04-04 00:29 | XMS_ITS | Encounter Summary ---
Author Organization [facility] Address [address] [place] [address] Care Team Providers Care Furniture Polisher Name Role Phone Harjinder Devine MD Unavailable [phone] Ora Jay HALL TENDER Primary Care Provider Unavaila Lanette Hoover HALL TENDER Primary Care Provider [phone] Encounter Details Date Type Department Care Team (Late st Contact Info) Description 07/17/2020 MyChart Message Enc [facility] [address] [place] [address] Ora Jay, HALL TENDER RE: Test Results Social History Tobacco Use Types Packs/Day Years [...] Progress Notes * David Miller MA - 07/18/2020 7:17 AM CST Please advise. CLERK documented in this encounter Plan of Treatment Upcoming Encounters Date Type Department Care Team (Late st Contact Info) Description 04/28/2025 7:40 AM CODE CLERK Office Visit [facility] [address] [place] [address] Lanette Greene NP [address] [place] [address] documented as of this encounter Visit Diagnoses Not on filedocumented in this encounter Additional Health Concerns Assessment Noted Time PHQ-9 Depression Total Score: 10 020 11:12 AM CDT documented as of this encounter Care Teams Furniture Polisher Relationship Specialty Start Date End Date Ora Jay NP PCP - General NURSE PRACTITIONER 12/13/19 10/22/23 Lanette Greene NP [address] [place] [address] PCP - General NURSE PRACTITIONER 10/23/23 Harjinder Devine MD Sathish Company Miner Blasting CARDIOVASCULAR DISEASE 06/15/18 documented as of this encounter
--- OUTSIDE RECORDS SUMMARY | 2025-04-04 00:29 | XMS_ITS | Encounter Summary ---
Author Organization [facility] Address [address] [place] [address] Care Team Providers Care Mortgage Or Loan Underwriter Name Role Phone Harjinder Devine MD Unavailable [phone] Ora Jay FLUME WORKER Primary Care Provider Unavaila Lanette Hoover FLUME WORKER Primary Care Provider [phone] Encounter Details Date Type Department Care Team (Late Contact Info) Description 06/28/2020 MyCdo[employer]de[employer] Message Enc [address] [address] [facility] Provider Appeal for Synthroid Social History Tobacco Use Types Packs/Day Years [...] Encounters Date Type Department Care Team (Late Contact Info) Description 04/28/2025 7:40 AM FILTER PLANT OPERATOR Office Visit [address] [address] Lanette Greene NP [address] [place] [address] documented as of this encounter Visit Diagnoses Not on filedocumented in this encounter Additional Health Concerns Assessment Noted Time PHQ-9 Depression Total Score: 10 020 11:12 AM CDT documented as of this encounter Care Teams Mortgage Or Loan Underwriter Relationship Specialty Start Date End Date Ora Jay NP PCP - General NURSE PRACTITIONER 12/13/19 10/22/23 Lanette Greene NP [address] [place] [address] PCP - General NURSE PRACTITIONER 10/23/23 Harjinder Devine MD Sathish Machine Heel Builder CARDIOVASCULAR DISEASE 06/15/18 documented as of this encounter
--- OUTSIDE RECORDS SUMMARY | 2025-04-04 00:29 | XMS_ITS | Encounter Summary ---
Author Organization [facility] Address [address] [place] [address] Care Team Providers Care Process Assistant Name Role Phone Harjinder Devine MD Unavailable [phone] Ora Jay GROUNDS SUPERVISOR Primary Care Provider Unavaila Lanette Hoover NP Primary Care Provider [phone] Encounter Details Date Type Department Care Team (Late st Contact Info) Description 08/20/2020 Memopal Message Enc [facility] Family Medicine [facility] 5 [place] [address] Ora Jay NP Medication Questions Social History Tobacco Use Types [...] Progress Notes * David Miller MA - 08/21/2020 10:38 AM CDT Information relayed to pt via Memopal. * Ora Jay NP - 08/21/2020 9:41 AM CDT Patient had to stop metoprolol due to it causing her to have issue of throat swelling. She had previously listed an allergy to ARBs and ERROL due to dizziness. She restarted losartan on her own and states she has been doing ok and her blood pressure is better. I will send in a 30 day supply and have her follow up in office in 1 week. * David Miller MA - 08/21/2020 7:14 AM CDT Please advise. documented in this encounter Plan of Treatment Upcoming Encounters Date Type Department Care Team (Late st Contact Info) Description 04/28/2025 7:40 AM CONSUMER PRODUCT ADVISOR Office Visit [facility] Family Medicine - [address] [address] Lanette Greene NP [address] [place] [address] [place] [address] documented as of this encounter Visit Diagnoses Diagnosis Essential hypertension- Primary Unspecified essential hypertension documented in this encounter Additional Health Concerns Assessment Noted Time PHQ-9 Depression Total Score: 10 020 11:12 AM CDT documented as of this encounter Care Teams Process Assistant Relationship Specialty Start Date End Date Ora Jay NP PCP - General NURSE PRACTITIONER 12/13/19 10/22/23 Lanette Greene [place] [address] PCP - General NURSE PRACTITIONER 10/23/23 Harjinder Devine MD Sathish Director Of Catering CARDIOVASCULAR DISEASE 06/15/18 documented as of this encounter
--- OUTSIDE RECORDS SUMMARY | 2025-04-04 00:29 | XMS_ITS | Encounter Summary ---
Author Organization [facility] Address [address] [place] [address] Care Team Providers Care Test Equipment Mechanic Name Role Phone Harjinder Devine MD Unavailable [phone] Lanette Greene NP Primary Care Provider [phone] Encounter Details Date Type Department Care Team (Late Contact Info) Description 04/26/2024 MyChart Message Enc [address] [address] Lanette Greene NP [address] [place] [address] mammogram Social History Tobacco Use Types Packs/Day Years [...] Upcoming Encounters Date Type Department Care Team ([facility] Contact Info) Description 04/28/2025 7:40 AM SPOOL SALVAGER Office Visit [address] [address] Lanette Greene NP [address] [place] [address] documented as of this encounter Visit Diagnoses Not on filedocumented in this encounter Additional Health Concerns Assessment Noted Time PHQ-9 Depression Total Score: 2 04/15/20 24 8:10 AM SPOOL SALVAGER documented as of this encounter Care Teams Test Equipment Mechanic Relationship Specialty Start Date End Date Lanette Greene [place] [address] [place] [address] PCP - General NURSE PRACTITIONER 10/23/23 Harjinder Devine MD Sathish Planting Machine Crewman CARDIOVASCULAR DISEASE 06/15/18 documented as of this encounter
--- OUTSIDE RECORDS SUMMARY | 2025-04-04 00:29 | XMS_ITS | Encounter Summary ---
Author Organization [facility] Address [address] [place] [address] Care Team Providers Care Crt Name Role Phone Koby Hernandez DO Primary Care Provider [phone] Harjinder Devine MD Unavailable [phone] Ora Jay CONSTRUCTION SAFETY MANAGER Primary Care Provider Unavaila Lanette Hoover CONSTRUCTION SAFETY MANAGER Primary Care Provider [phone] Encounter Details Date Type Department Care Team (Latest Contact Info) Description 01/30/2018 Abstract [facility] Koby Hernandez DO [address] [id number] Social History Tobacco Use Types Packs/Day Years Used Date Smoking Tobacco: Never Comments Unknown Sex and Gender Information Value Date Recorded Sex Assigned at Not on file Legal Sex Female 10:34 PM CDT Gender Identity Not on file Sexual Orientation Not on file documented as of this encounter Plan of Treatment Upcoming Encounters Date Type Department Care Team (Late st Contact Info) Description 04/28/2025 7:40 AM HIDE STRETCHER HAND Office Visit [facility] Family Medicine - [place] 5 [place] [phone] Lanette Greene NP [address] [place] [address] documented as of this encounter Visit Diagnoses Not on filedocumented in this encounter Care Teams Crt Relationship Specialty Start Date End Date Koby Hernandez DO PCP - General 02/21/15 12/12/19 Ora Jay NP PCP - General NURSE PRACTITIONER 12/13/19 10/22/23 Lanette Greene NP [address] [place] [address] PCP - General NURSE PRACTITIONER 10/23/23 Harjinder Devine MD Sathish Photography Manager CARDIOVASCULAR DISEASE 06/15/18 documented as of this encounter
--- OUTSIDE RECORDS SUMMARY | 2025-04-04 00:29 | XMS_ITS | Encounter Summary ---
Author Organization [facility] Address [address] [place] [address] Care Team Providers Care Veterinary Receptionist Name Role Phone Harjinder Devine MD Unavailable [phone] Ora Jay ELECTRICIAN DECK Primary Care Provider Unavaila Lanette Hoover NP Primary Care Provider [phone] Encounter Details Date Type Department Care Team (Late st Contact Info) Description 07/17/2020 MyChart Message Enc [address] [address] Ora Jay NP RE: Medication [...] st Contact Info) Description 04/28/2025 7:40 AM TELEMETRY REGISTERED NURSE Office Visit [address] [address] Lanette Greene NP [address] [place] [address] documented as of this encounter Visit Diagnoses Not on filedocumented in this encounter Additional Health Concerns Assessment Noted Time PHQ-9 Depression Total Score: 10 020 11:12 AM CDT documented as of this encounter Care Teams Veterinary Receptionist Relationship Specialty Start Date End Date Ora Jay NP PCP - General NURSE PRACTITIONER 12/13/19 10/22/23 Lanette Greene NP [address] [place] [address] PCP - General NURSE PRACTITIONER 10/23/23 Harjinder Devine MD Sathish Oral Surgery Physician CARDIOVASCULAR DISEASE 06/15/18 documented as of this encounter
--- OUTSIDE RECORDS SUMMARY | 2025-04-04 00:29 | XMS_ITS | Encounter Summary ---
Author Organization [facility] Address [address] [place] [address] Care Team Providers Care Front Office Secretary Name Role Phone Harjinder Devine MD Unavailable [phone] Lanette Greene NP Primary Care Provider [phone] Encounter Details Date Type Department Care Team (Late Contact Info) Description 04/23/2024 Libretto Message Enc [address] [address] [facility] Provider labs Social History Tobacco Use Types Packs/Day Years [...] (Late Contact Info) Description 04/28/2025 7:40 AM KEY ACCOUNT MANAGER Office Visit [address] [address] Lanette Greene NP [address] [place] [address] documented as of this encounter Visit Diagnoses Not on filedocumented in this encounter Additional Health Concerns Assessment Noted Time PHQ-9 Depression Total Score: 2 11/21/20 24 8:10 AM KEY ACCOUNT MANAGER documented as of this encounter Care Teams Front Office Secretary Relationship Specialty Start Date End Date [place]ette [place] [address] PCP - General NURSE PRACTITIONER 10/23/23 Harjinder Devine MD Sathish Bug Trimmer CARDIOVASCULAR DISEASE 06/15/18 documented as of this encounter
--- OUTSIDE RECORDS SUMMARY | 2025-04-04 00:29 | XMS_ITS | Encounter Summary ---
Author Organization [facility] Address [address] [place] [address] Care Team Providers Care Nurse Licensed Practical Name Role Phone Harjinder Devine MD Unavailable [phone] Ora Jay PREPRINT ANALYST Primary Care Provider Unavaila Lanette Hoover PREPRINT ANALYST Primary Care Provider Encounter Details Date Type Department Care Team (Late st Contact Info) Description 12/24/2019 Flybitst Message Enc [facility] Medical [facility] Family Medicine [address] [address] Ora Jay, PREPRINT ANALYST RE: RE: Question Social History Tobacco Use Types [...] have Coronavirus / COVID-19? No / Unsure 12/27/2019 4:49 PM CDT documented as of this encounter Progress Notes * Belinda Briscoe MA - 12/24/2019 9:54 AM CDT fyi documented in this encounter Plan of Treatment Upcoming Encounters Date Type Department Care Team (Late st Contact Info) Description 04/28/2025 7:40 AM BLACK JACK DEALER Office Visit [facility] Family Medicine - [place] [address] [place] [address] Lanette Greene NP [address] [place] [address] documented as of this encounter Visit Diagnoses Not on filedocumented in this encounter Additional Health Concerns Assessment Noted Time PHQ-9 Depression Total Score: 10 020 11:12 AM CDT documented as of this encounter Care Teams Nurse Licensed Practical Relationship Specialty Start Date End Date Ora Jay NP PCP - General NURSE PRACTITIONER 12/13/19 10/22/23 Lanette Greene NP [address] [place] [address] PCP - General NURSE PRACTITIONER 10/23/23 Harjinder Devine MD Sathish Risk Compliance Analyst CARDIOVASCULAR DISEASE 06/15/18 documented as of this encounter
--- OUTSIDE RECORDS SUMMARY | 2025-04-04 00:29 | XMS_ITS | Encounter Summary ---
Author Organization [facility] Address [address] [place] [address] Care Team Providers Care It Desktop Support Technician Name Role Phone Harjinder Devine MD Unavailable Ora Jay INSTRUCTOR TECHNICAL TRAINING Primary Care Provider Unavaila Lanette Hoover NP Primary Care Provider [phone] Encounter Details Date Type Department Care Team (Late Contact Info) Description 05/23/2020 MyChart Message Enc [address] [address] Ora Jay NP Question Social History Tobacco Use Types Packs/Day [...] COVID-19? No / Unsure 05/23/2020 2:54 PM MANAGER FILTER documented as of this encounter Plan of Treatment Upcoming Encounters Date Type Department Care Team ([facility] Contact Info) Description 04/28/2025 7:40 AM MANAGER FILTER Office Visit [facility] 5 [place] [address] Lanette Greene NP [address] [place] [address] documented as of this encounter Visit Diagnoses Not on filedocumented in this encounter Additional Health Concerns Assessment Noted Time PHQ-9 Depression Total Score: 10 020 11:12 AM CDT documented as of this encounter Care Teams It Desktop Support Technician Relationship Specialty Start Date End Date Ora Jay INSTRUCTOR TECHNICAL TRAINING PCP - General NURSE PRACTITIONER 12/13/19 10/22/23 Lanette [place] [address] PCP - General NURSE PRACTITIONER 10/23/23 Harjinder Devine MD Sathish Steeping Press Tender CARDIOVASCULAR DISEASE 06/15/18 documented as of this encounter
--- OUTSIDE RECORDS SUMMARY | 2025-04-04 00:29 | XMS_ITS | Encounter Summary ---
Author Organization [facility] Address [address] [place] [address] Care Team Providers Care Clothes Wringer Name Role Phone Koby Hernandez DO Primary Care Provider [phone] Harjinder Devine MD Unavailable [phone] Ora Jay AEROBICS INSTRUCTOR Primary Care Provider Unavaila Lanette Hoover AEROBICS INSTRUCTOR Primary Care Provider [phone] Encounter Details Date Type Department Care Team (Late st Contact Info) Description 06/04/2019 MyChart Message Enc [facility] 5 [place] [address] Koby Hernandez DO [address] [phone] Other Social History Tobacco Use Types Packs/Day Years Used Date Smoking Tobacco: Never Smokeless Tobacco: Never Comments Unknown Sex and Gender Information Value Date Recorded Sex Assigned at Not on file Legal Sex Female 10:34 PM CDT Gender Identity Not on file Sexual Orientation Not on file documented as of this encounter Progress Notes * Charles Wilson RN - 06/04/2019 7:53 AM CST FYI STANT BOYS TRACK COACH documented in this encounter Plan of Treatment Upcoming Encounters Date Type Department Care Team (Late st Contact Info) Description 04/28/2025 7:40 AM ASSISTANT BOYS TRACK COACH Office Visit [facility] Family Medicine - [address] [phone] Lanette Greene [place] [address] documented as of this encounter Visit Diagnoses Not on filedocumented in this encounter Care Teams Clothes Wringer Relationship Specialty Start Date End Date Koby Hernandez DO PCP - General 02/21/15 12/12/19 Ora Jay NP PCP - General NURSE PRACTITIONER 12/13/19 10/22/23 Lanette Greene [place] [address] PCP - General NURSE PRACTITIONER 10/23/23 Harjinder Devine MD Sathish Department Supervisor CARDIOVASCULAR DISEASE 06/15/18 documented as of this encounter
--- OUTSIDE RECORDS SUMMARY | 2025-04-04 00:29 | XMS_ITS | Encounter Summary ---
Author Organization [facility] Address [address] [place] [address] Care Team Providers Care Cash Teller Name Role Phone Harjinder Devine MD Unavailable [phone] Ora Jay RECREATION TECHNICIAN Primary Care Provider Unavaila Lanette Hoover RECREATION TECHNICIAN Primary Care Provider [phone] Encounter Details Date Type Department Care Team (Late Contact Info) Description 09/18/2020 CrowdStart Message Enc [facility] Family Medicine [facility] 5 [place] [address] Ora Jay, RECREATION TECHNICIAN RE: Question Social History Tobacco Use Types [...] Progress Notes * David Miller MA - 09/18/2020 7:28 AM CDT Please advise. documented in this encounter Plan of Treatment Upcoming Encounters Date Type Department Care Team (Late Contact Info) Description 04/28/2025 7:40 AM MANAGER CONTENT Office Visit [facility] Medical [facility] Family Medicine - [place] 5 [place] [address] Lanette Greene NP [address] [address] documented as of this encounter Visit Diagnoses Not on filedocumented in this encounter Additional Health Concerns Assessment Noted Time PHQ-9 Depression Total Score: 10 020 11:12 AM CDT documented as of this encounter Care Teams Cash Teller Relationship Specialty Start Date End Date Ora Jay NP PCP - General NURSE PRACTITIONER 12/13/19 10/22/23 Lanette Greene NP [address] [place] [address] PCP - General NURSE PRACTITIONER 10/23/23 Harjinder Devine MD Sathish Manager Employee Relations CARDIOVASCULAR DISEASE 06/15/18 documented as of this encounter
--- OUTSIDE RECORDS SUMMARY | 2025-04-04 00:29 | XMS_ITS | Encounter Summary ---
Author Organization [facility] Address [address] [place] [address] Care Team Providers Care Religious Education Coordinator Name Role Phone Harjinder Devine MD Unavailable [phone] Ora Jay DRUM TESTER Primary Care Provider Unavaila Lanette Hoover DRUM TESTER Primary Care Provider [phone] Encounter Details Date Type Department Care Team (Late st Contact Info) Description 06/28/2020 MyChart Message Enc [address] [address] Ora Jay, DRUM TESTER RE: Other Social History Tobacco Use Types [...] Progress Notes * David Miller MA - 06/28/2020 2:02 PM CST Here it what she provided for the appeal form. It's a docusign document and can only be done electronically. PRESS OPERATOR documented in this encounter Plan of Treatment Upcoming Encounters Date Type Department Care Team (Late st Contact Info) Description 04/28/2025 7:40 AM DIE PRESS OPERATOR Office Visit [facility] Family [address] [place] [address] Lanette Greene NP [address] [place] [address] documented as of this encounter Visit Diagnoses Not on filedocumented in this encounter Additional Health Concerns Assessment Noted Time PHQ-9 Depression Total Score: 10 020 11:12 AM CDT documented as of this encounter Care Teams Religious Education Coordinator Relationship Specialty Start Date End Date Ora Jay NP PCP - General NURSE PRACTITIONER 12/13/19 10/22/23 Lanette Greene NP [address] [place] [address] PCP - General NURSE PRACTITIONER 10/23/23 Harjinder Devine MD Sathish Balloon Dipper CARDIOVASCULAR DISEASE 06/15/18 documented as of this encounter
--- OUTSIDE RECORDS SUMMARY | 2025-04-04 00:29 | XMS_ITS | Encounter Summary ---
Author Organization [facility] Address [address] [place] [address] Care Team Providers Care Broker Agricultural Produce Name Role Phone Harjinder Devine MD Unavailable [phone] Lanette Greene NP Primary Care Provider [phone] Encounter Details Date Type Department Care Team (Latest Contact Info) Description 01/12/2024 MyChart Message Enc [address] [address] Lanette Greene NP [address] [place] [address] Losartan prescription Social History Tobacco Use Types Packs/Day Years Used Date Smoking Tobacco: Never Smokeless Tobacco: Never Alcohol Use Standard Drinks/Week Comments Never 0 (1 standard drink = 0.6 oz pur e alcohol) PHQ-2 Answer Date Recorded Patient Health Questionnaire-2 Score 0 09/10/2023 Comments No Sex and Gender Information Value Date Recorded Sex Assigned at Not on file Legal Sex Female 10:34 PM CDT Gender Identity Not on file Sexual Orientation Not on file documented as of this encounter Plan of Treatment Upcoming Encounters Date Type Department Care Team (Late st Contact Info) Description 04/28/2025 7:40 AM TECHNICIAN SEMICONDUCTOR DEVELOPMENT Office Visit [facility] 5 [place] [address] Lanette Greene NP [address] [place] [address] documented as of this encounter Visit Diagnoses Not on filedocumented in this encounter Additional Health Concerns Assessment Noted Time PHQ-9 Depression Total Score: 1 08/07/19 22 7:44 AM CDT documented as of this encounter Care Teams Broker Agricultural Produce Relationship Specialty Start Date End Date [place] [address] PCP - General NURSE PRACTITIONER 10/23/23 Harjinder Devine MD Sathish Production Support Analyst CARDIOVASCULAR DISEASE 06/15/18 documented as of this encounter
--- OUTSIDE RECORDS SUMMARY | 2025-04-04 00:29 | XMS_ITS | Encounter Summary ---
Author Organization [facility] Address [address] [place] [address] Care Team Providers Care Geothermal Installer Name Role Phone Harjinder Devine MD Unavailable [phone] Ora Jay SENIOR SECURITY ENGINEER Primary Care Provider Unavaila Lanette Hoover NP Primary Care Provider [phone] Encounter Details Date Type Department Care Team (Late st Contact Info) Description 08/18/2020 Scrip Products Message Enc [facility] Family Medicine [facility] 5 [place] [address] Ora Jay, SENIOR SECURITY ENGINEER RE: Medication Questions Social History Tobacco Use [...] Progress Notes * Charles Wilson RN - 08/21/2020 10:18 AM CDT Please see note. Thanks! * David Miller MA - 08/21/2020 7:08 AM CDT Please advise. documented in this encounter Plan of Treatment Upcoming Encounters Date Type Department Care Team (Late st Contact Info) Description 04/28/2025 7:40 AM SILICA MIXER OPERATOR Office Visit [facility] Family Medicine - [place] [address] [place] [address] Lanette Greene NP [address] [facility] [place] [address] documented as of this encounter Visit Diagnoses Not on filedocumented in this encounter Additional Health Concerns Assessment Noted Time PHQ-9 Depression Total Score: 10 020 11:12 AM CDT documented as of this encounter Care Teams Geothermal Installer Relationship Specialty Start Date End Date Ora Jay NP PCP - General NURSE PRACTITIONER 12/13/19 10/22/23 Lanette Greene NP [address] [facility] [place] [address] PCP - General NURSE PRACTITIONER 10/23/23 Harjinder Devine MD Sathish Floor Attendant CARDIOVASCULAR DISEASE 06/15/18 documented as of this encounter
--- OUTSIDE RECORDS SUMMARY | 2025-04-04 00:29 | XMS_ITS | Encounter Summary ---
Author Organization [facility] Address [address] [place] [address] Care Team Providers Care Tank Stave Assembler Name Role Phone Harjinder Devine MD Unavailable [phone] Ora Jay FLATBED TRUCK DRIVER Primary Care Provider Unavaila Lanette Hoover NP Primary Care Provider [phone] Encounter Details Date Type Department Care Team (Late st Contact Info) Description 06/28/2020 [employer] Message Enc [facility] Medical Group Family Medicine [address] [address] Ora Jay NP RE: Medication Questions Social [...] Progress Notes * Ora Jay NP - 06/29/2020 10:27 AM CST Medication sent in ES 9 12 TUTOR * David Miller MA - 06/28/2020 1:24 PM CST Can you please send Rx to local pharmacy for synthroid. Thank you. ES 9 12 TUTOR documented in this encounter Plan of Treatment Upcoming Encounters Date Type Department Care Team (Late st Contact Info) Description 04/28/2025 7:40 AM GRADES 9 12 TUTOR Office Visit [facility] Family Medicine - [place] [address] [place] [address] Lanette Greene NP [address] [place] [address] documented as of this encounter Visit Diagnoses Not on filedocumented in this encounter Additional Health Concerns Assessment Noted Time PHQ-9 Depression Total Score: 10 020 11:12 AM CDT documented as of this encounter Care Teams Tank Stave Assembler Relationship Specialty Start Date End Date Ora Jay NP PCP - General NURSE PRACTITIONER 12/13/19 10/22/23 Lanette Greene NP [address] [place] [address] PCP - General NURSE PRACTITIONER 10/23/23 Harjinder Devine MD Sathish Immigration Officer CARDIOVASCULAR DISEASE 06/15/18 documented as of this encounter
--- OUTSIDE RECORDS SUMMARY | 2025-04-04 00:29 | XMS_ITS | Encounter Summary ---
Author Organization [facility] Address [address] [place] [address] Care Team Providers Care S3B Multi Sensor Operator Name Role Phone Harjinder Devine MD Unavailable [phone] Ora Jay PASTRY MIXER Primary Care Provider Unavaila Lanette Hoover PASTRY MIXER Primary Care Provider [phone] Encounter Details Date Type Department Care Team (Late Contact Info) Description 08/21/2020 Bliips Message Enc [address] [address] [facility] RE: RE: Blood Pressure Social History Tobacco Use Types Packs/Day Years [...] Notes * David Miller MA - 08/21/2020 10:54 AM CDT Please advise. documented in this encounter Plan of Treatment Upcoming Encounters Date Type Department Care Team (Late st Contact Info) Description 04/28/2025 7:40 AM IRRIGATION INSTALLATION SPECIALIST Office Visit [facility] 5 [place] [address] Lanette Greene NP [address] [place] [address] documented as of this encounter Visit Diagnoses Not on filedocumented in this encounter Additional Health Concerns Assessment Noted Time PHQ-9 Depression Total Score: 10 12/12/ 020 11:12 AM CDT documented as of this encounter Care Teams S3B Multi Sensor Operator Relationship Specialty Start Date End Date Ora Jay NP PCP - General NURSE PRACTITIONER 12/13/19 10/22/23 Lanette Greene NP [address] [place] [address] PCP - General NURSE PRACTITIONER 10/23/23 Harjinder Devine MD Sathish Patrol Police Sergeant CARDIOVASCULAR DISEASE 06/15/18 documented as of this encounter
--- OUTSIDE RECORDS SUMMARY | 2025-04-04 00:29 | XMS_ITS | Encounter Summary ---
Author Organization [facility] Address [address] [place] [address] Care Team Providers Care Research Professional Name Role Phone Koby Hernandez DO Primary Care Provider [phone] Harjinder Devine MD Unavailable [phone] Ora Jay ANIMATION PRODUCER Primary Care Provider Unavaila Lanette Hoover ANIMATION PRODUCER Primary Care Provider [phone] Encounter Details Date Type Department Care Team (Late st Contact Info) Description 03/31/2019 Rent[employer]eder Message Enc [facility] Family Medicine - [place] [address] [place] [address] Koby Hernandez DO [address] [phone] RE: Other Social History Tobacco Use Types Packs/Day Years Used Date Smoking Tobacco: Never Smokeless Tobacco: Never Comments Unknown Sex and Gender Information Value Date Recorded Sex Assigned at Not on file Legal Sex Female 10:34 PM CDT Gender Identity Not on file Sexual Orientation Not on file documented as of this encounter Progress Notes * Koby Hernandez DO - 03/31/2019 11:36 AM CST Numbers look great TENANCE MECHANIC TECHNICIAN * Charles Hurst RN - 03/31/2019 11:20 AM CST FYI TENANCE MECHANIC TECHNICIAN documented in this encounter Plan of Treatment Upcoming Encounters Date Type Department Care Team (Late st Contact Info) Description 04/28/2025 7:40 AM MAINTENANCE MECHANIC TECHNICIAN Office Visit [facility] Family Medicine - [place] [address] [place] [address] Lanette Greene NP [address] [place] [address] documented as of this encounter Visit Diagnoses Not on filedocumented in this encounter Care Teams Research Professional Relationship Specialty Start Date End Date Koby Hernandez DO PCP - General 02/21/15 12/12/19 Ora Jay NP PCP - General NURSE PRACTITIONER 12/13/19 10/22/23 Lanette [place] [address] PCP - General NURSE PRACTITIONER 10/23/23 Harjinder Devine MD Sathish Back Shoe Cutter CARDIOVASCULAR DISEASE 06/15/18 documented as of this encounter
--- OUTSIDE RECORDS SUMMARY | 2025-04-04 00:30 | XMS_ITS | Encounter Summary ---
Author Organization [facility] Address [address] [place] [address] Care Team Providers Care Superintendent Generating Plant Name Role Phone Harjinder Devine MD Unavailable [phone] Lanette Greene NP Primary Care Provider [phone] Encounter Details Date Type Department Care Team (Late Contact Info) Description 12/11/2023 MyChart Message Enc [address] [address] Lanette Greene NP [address] [place] [address] Blood work test results Social History Tobacco Use Types Packs/Day Years [...] (Late Contact Info) Description 04/28/2025 7:40 AM BURN OUT SCARFING OPERATOR Office Visit [facility] 5 [place] [address] Lanette Greene NP [address] [place] [address] documented as of this encounter Visit Diagnoses Not on filedocumented in this encounter Additional Health Concerns Assessment Noted Time PHQ-9 Depression Total Score: 1 08/07/19 22 7:44 AM CDT documented as of this encounter Care Teams Superintendent Generating Plant Relationship Specialty Start Date End Date [place] [address] PCP - General NURSE PRACTITIONER 10/23/23 Harjinder Devine MD Sathish Pharmacy Assistant CARDIOVASCULAR DISEASE 06/15/18 documented as of this encounter
--- OUTSIDE RECORDS SUMMARY | 2025-04-04 00:30 | XMS_ITS | Encounter Summary ---
Author Organization [facility] Address [address] [place] [address] Phone Care Team Providers Care Foundation Drill Operator Helper Name Role Phone Lanette Greene APRN Primary Care Provider Reg Dang MD Unavailable [phone] Encounter Details Date Type Department Care Team (Late st Contact Info) Description 03/01/2025 Telephone [facility] [address] [address] Reg Dang MD [address] [place] [address] Social History Tobacco Use Types Packs/Day Years [...] Care Team (Late st Contact Info) Description 06/30/2025 8:00 AM BIODIESEL TECHNOLOGY MANAGER [facility] [address] [phone] Reg Dang MD [address] [place] [address] documented as of this encounter Visit Diagnoses Not on filedocumented in this encounter Care Teams Foundation Drill Operator Helper Relationship Specialty Start Date End Date Jc DEBORA Gama [address] [place] [address] PCP - General Advanced Practice Nurse 05/13/24 Reg Dang MD [address] [place] [phone] Consulting Physician Oncology 05/13/24 documented as of this encounter
--- OUTSIDE RECORDS SUMMARY | 2025-04-04 00:30 | XMS_ITS | Encounter Summary ---
Author Organization [facility] Address [address] [place] [address] Care Team Providers Care Cfo Name Role Phone Harjinder Devine MD Unavailable [phone] Ora Jay CONTRACT PROCESSOR Primary Care Provider Unavaila Lanette Hoover NP Primary Care Provider [phone] Encounter Details Date Type Department Care Team ([facility] Contact Info) Description 09/21/2020 [employer] Message Enc [address] [address] [facility] Provider RE: FW: Losartan Social History Tobacco Use Types Packs/Day Years [...] AM CDT documented as of this encounter Plan of Treatment Upcoming Encounters Date Type Department Care Team ([facility] Contact Info) Description 04/28/2025 7:40 AM CLINICAL DATA RESEARCH Office Visit [facility] 5 [place] [address] Lanette Greene NP [address] [place] [address] documented as of this encounter Visit Diagnoses Not on filedocumented in this encounter Additional Health Concerns Assessment Noted Time PHQ-9 Depression Total Score: 10 12/12/ 020 11:12 AM CDT documented as of this encounter Care Teams Cfo Relationship Specialty Start Date End Date Ora Jay NP PCP - General NURSE PRACTITIONER 12/13/19 10/22/23 Lanette Greene NP [address] [place] [address] PCP - General NURSE PRACTITIONER 10/23/23 Harjinder Devine MD Sathish Market Research Analyst CARDIOVASCULAR DISEASE 06/15/18 documented as of this encounter
--- OUTSIDE RECORDS SUMMARY | 2025-04-04 00:30 | XMS_ITS | Encounter Summary ---
Author Organization [facility] Address [address] [place] [address] Care Team Providers Care Sculpture Instructor Name Role Phone Harjinder Devine MD Unavailable [phone] Ora Jay TIN RECOVERY WORKER Primary Care Provider Unavaila Lanette Hoover TIN RECOVERY WORKER Primary Care Provider [phone] Encounter Details Date Type Department Care Team (Late Contact Info) Description 07/03/2022 [employer] Message Enc [facility] Family [address] [address] Ora Jay, TIN RECOVERY WORKER Blood pressure results Social History Tobacco Use Types Packs/Day Years Used Date Smoking Tobacco: Never Smokeless Tobacco: Never Alcohol Use Standard Drinks/Week Comments Never 0 (1 standard drink = 0.6 oz pur e alcohol) PHQ-2 Answer Date Recorded PHQ-2 Score - If the patient scores above 3, please move on to questions 3-9 1 08/06/2021 Comments No Sex and Gender Information Value Date Recorded Sex Assigned at Not on file Legal Sex Female 10:34 PM CDT Gender Identity Not on file Sexual Orientation Not on file documented as of this encounter Progress Notes * Charles Wilson RN - 07/04/2022 7:39 AM CST Please see note. Thanks IAL INVESTIGATOR documented in this encounter Plan of Treatment Upcoming Encounters Date Type Department Care Team (Late st Contact Info) Description 04/28/2025 7:40 AM SPECIAL INVESTIGATOR Office Visit [facility] Family [address] [place] [address] Lanette Greene NP [address] [address] documented as of this encounter Visit Diagnoses Not on filedocumented in this encounter Additional Health Concerns Assessment Noted Time PHQ-9 Depression Total Score: 1 08/07/19 22 7:44 AM CDT documented as of this encounter Care Teams Sculpture Instructor Relationship Specialty Start Date End Date Ora Jay NP PCP - General NURSE PRACTITIONER 12/13/19 10/22/23 Lanette Greene NP [address] [place] [address] PCP - General NURSE PRACTITIONER 10/23/23 Harjinder Devine MD Sathish Flight Attendant CARDIOVASCULAR DISEASE 06/15/18 documented as of this encounter
--- OUTSIDE RECORDS SUMMARY | 2025-04-04 00:30 | XMS_ITS | Encounter Summary ---
Author Organization [facility] Address [address] [place] [address] Care Team Providers Care Manager Sql Name Role Phone Harjinder Devine MD Unavailable [phone] Ora Jay MOLD RUNNER Primary Care Provider Unavaila Lanette Hoover NP Primary Care Provider [phone] Encounter Details Date Type Department Care Team (Late Contact Info) Description 12/21/2020 MyChart Message Enc [facility] 5 [place] [address] Ora Jay, MOLD RUNNER Other Social History Tobacco Use Types Packs/Day Years Used Date Smoking Tobacco: Never Smokeless Tobacco: Never Alcohol Use Standard Drinks/Week Comments Never 0 (1 standard drink = 0.6 oz pur e alcohol) PHQ-2 Answer Date Recorded PHQ-2 Score - If the patient scores above 3, please move on to questions 3-9 1 10/13/2020 Comments No Sex and Gender Information Value Date Recorded Sex Assigned at Not on file Legal Sex Female 10:34 PM CDT Gender Identity Not on file Sexual Orientation Not on file documented as of this encounter Plan of Treatment Upcoming Encounters Date Type Department Care Team (Late Contact Info) Description 04/28/2025 7:40 AM VOCATIONAL TECHNICAL EDUCATION TEACHER Office Visit [facility] 5 [place] [address] Lanette Greene NP [address] [place] [address] documented as of this encounter Visit Diagnoses Not on filedocumented in this encounter Additional Health Concerns Assessment Noted Time PHQ-9 Depression Total Score: 10 020 11:12 AM CDT documented as of this encounter Care Teams Manager Sql Relationship Specialty Start Date End Date Ora Jay NP PCP - General NURSE PRACTITIONER 12/13/19 10/22/23 Lanette [place] [address] PCP - General NURSE PRACTITIONER 10/23/23 Harjinder Devine MD Sathish Water Pump Assembler CARDIOVASCULAR DISEASE 06/15/18 documented as of this encounter
--- OUTSIDE RECORDS SUMMARY | 2025-04-04 00:30 | XMS_ITS | Encounter Summary ---
Author Organization [facility] Address [address] [place] [address] Care Team Providers Care Database Programmer Name Role Phone Harjinder Devine MD Unavailable [phone] Ora Jay COMPUTER VIDEO GAME DESIGNER Primary Care Provider Unavaila Lanette Hoover NP Primary Care Provider [phone] Encounter Details Date Type Department Care Team (Late st Contact Info) Description 03/23/2021 SpecifiedBy Message Enc [facility] Family Medicine [facility] 5 [place] [phone] Ora Jay NP RE: Test Results Social History Tobacco Use [...] Progress Notes * David Miller MA - 03/23/2021 11:45 AM CDT Requested test result from [facility]. * Ora Jay NP - 03/23/2021 11:14 AM CDT This was done at [facility]. * Ora Jay NP - 03/23/2021 10:04 AM CDT I don't have this can you request it from [place]. * David Miller MA - 03/23/2021 8:31 AM CDT Please advise, results are in pt chart. documented in this encounter Plan of Treatment Upcoming Encounters Date Type Department Care Team (Late st Contact Info) Description 04/28/2025 7:40 AM CATTLE DIPPER Office Visit [facility] Family Medicine - [place] 5 [facility] [place] [address] [place] [address] documented as of this encounter Visit Diagnoses Not on filedocumented in this encounter Additional Health Concerns Assessment Noted Time PHQ-9 Depression Total Score: 10 12/12/ 020 11:12 AM CDT documented as of this encounter Care Teams Database Programmer Relationship Specialty Start Date End Date Ora Jay NP PCP - General NURSE PRACTITIONER 12/13/19 10/22/23 Lanette Greene [place] [address] PCP - General NURSE PRACTITIONER 10/23/23 Harjinder Devine MD Sathish Patent Prosecution Attorney CARDIOVASCULAR DISEASE 06/15/18 documented as of this encounter
--- OUTSIDE RECORDS SUMMARY | 2025-04-04 00:30 | XMS_ITS | Encounter Summary ---
Author Organization [facility] Address [address] [place] [address] Care Team Providers Care City Routeman Name Role Phone Harjinder Devine MD Unavailable [phone] Ora Jay ASTRONAUT MISSION SPECIALIST Primary Care Provider Unavaila Lanette Hoover ASTRONAUT MISSION SPECIALIST Primary Care Provider [phone] Encounter Details Date Type Department Care Team (Late st Contact Info) Description 10/24/2020 Spout Message Enc [facility] Family Medicine [address] [address] [employer], [facility] Provider RE: Lab results Social History Tobacco Use Types Packs/Day [...] have Coronavirus / COVID-19? No / Unsure 10/13/2020 7:20 AM CDT documented as of this encounter Progress Notes * David Miller MA - 10/25/2020 6:59 AM CDT FYI documented in this encounter Plan of Treatment Upcoming Encounters Date Type Department Care Team (Late st Contact Info) Description 04/28/2025 7:40 AM FIRE DEPARTMENT MARINE ENGINEER Office Visit [facility] Family Medicine - [place] [address] [place] [address] Lanette Greene NP [address] [place], [place] [phone] documented as of this encounter Visit Diagnoses Not on filedocumented in this encounter Additional Health Concerns Assessment Noted Time PHQ-9 Depression Total Score: 10 020 11:12 AM CDT documented as of this encounter Care Teams City Routeman Relationship Specialty Start Date End Date Ora Jay NP PCP - General NURSE PRACTITIONER 12/13/19 10/22/23 Lanette Greene NP [address] [place] [address] PCP - General NURSE PRACTITIONER 10/23/23 Harjinder Devine MD Sathish Exhibit Artist CARDIOVASCULAR DISEASE 06/15/18 documented as of this encounter
--- OUTSIDE RECORDS SUMMARY | 2025-04-04 00:30 | XMS_ITS | Encounter Summary ---
Author Organization [facility] Address [address] [place] [address] Care Team Providers Care Freight Brakeman Name Role Phone Harjinder Devine MD Unavailable [phone] Ora Jay SANDBLAST OPERATOR Primary Care Provider Unavaila Lanette Hoover NP Primary Care Provider [phone] Encounter Details Date Type Department Care Team (Late Contact Info) Description 07/07/2023 [employer] Message Enc [facility] 5 [place] [address] [facility] Provider Med refill Social History Tobacco Use Types Packs/Day Years [...] (Late Contact Info) Description 04/28/2025 7:40 AM DATABASE ADMINISTRATION PROJECT MANAGER Office Visit [facility] [address] [place] [address] Lanette Greene NP [address] [place] [address] documented as of this encounter Visit Diagnoses Not on filedocumented in this encounter Additional Health Concerns Assessment Noted Time PHQ-9 Depression Total Score: 1 08/07/19 22 7:44 AM CDT documented as of this encounter Care Teams Freight Brakeman Relationship Specialty Start Date End Date Ora Jay NP PCP - General NURSE PRACTITIONER 12/13/19 10/22/23 Lanette [place] [address] PCP - General NURSE PRACTITIONER 10/23/23 Harjinder Devine MD Sathish Torch Burner CARDIOVASCULAR DISEASE 06/15/18 documented as of this encounter
--- OUTSIDE RECORDS SUMMARY | 2025-04-04 00:30 | XMS_ITS | Clinical Summary ---
Author Organization [facility] Address [address] [place] [address] Care Team Providers Care Plate Worker Helper Name Role Phone Harjinder Devine MD Unavailable [phone] Lanette Greene NP Primary Care Provider [phone] Allergies Active Allergy Reactions Criticality Noted Date Comments Amlodipine Throat swelling,Swelling Low 04/14/2018 Hydrochlorothiazide Anaphylaxis,Throat swelling High 04/23/2021 Ketotifen Fumarate Itching Low 04/03/2018 Latex Rash Low 06/23/2018 Levothyroxine Anaphylaxis,Throat swelling High 02/28/2021 Lisinopril Dizziness 04/14/2018 Metformin Throat swelling 02/09/2019 Naproxen Unknown,Tinnitus 04/07/2014 Ear ringing Pantoprazole Shakiness 07/01/2021 Penicillins Unknown 11/29/2016 Zinc Oxide-Dimethicone Unknown 11/29/2016 Vitamin B12 Unknown 11/29/2016 Vitamin B12 With Intrinsic Factor Concentrate Anaphylaxis High 02/11/2018 Cobalamin Combinations Throat swelling 11/03/19 16 Medications duloxetine 60 MG capsule Take 1 capsule (60 mg total) by mouth daily. 1 8 Active Ascorbic Acid (VITAMIN C) 500 MG Chew Tab Chew 2 tablets by mouth daily. 9 Active Blood Glucose Monitoring Suppl KitIndications:Ty pe 2 diabetes mellitus without complication, without long-term current use of insulin ([facility]) Test daily; Please give pt whichever insurance covers 1 kit 9 Active Flaxseed, Linseed, (FLAX SEED OIL OR) Take by mouth as needed. Active ONETOUCH DELICA PLUS [id number] MiscIndications:T ype 2 diabetes mellitus without complication, without long-term current use of insulin ([facility]) TEST ONCE DAILY DIRECTED 100 each 0 Active ONETOUCH ULTRA test stripIndications: Type 2 diabetes mellitus without complication, without long-term current use of insulin ([facility]) USE TO TEST ONCE DAILY 100 strip 0 Active magnesium oxide 250 MG tablet Take 1 tablet (250 mg total) by mouth daily. Active triamcinolone acetonide 55 MCG/ACT nasal inhaler 2 sprays by Each Nostril route daily. Active loratadine 10 MG tablet Take 1 tablet (10 mg total) by mouth daily. Active artificial tears as needed. Ac tive Cholecalciferol (VITAMIN D) 125 MCG (5000 UT) Cap Ac tive fluticasone propionate 50 MCG/ACT nasal spray 2 Active multi vitamin/minerals tablet Active Zinc 15 MG Cap Activ e Apple Cider Vinegar 300 MG Tab 2 Active Cinnamon 500 MG capsule 2 Active Ferrous Sulfate (IRON) 90 (18 Fe) MG Tab 2 Active Potassium 99 MG tablet Take 1 tablet by mouth daily. 2 Active Multiple Vitamins-Minerals (EYE HEALTH + LUTEIN OR) Active losartan (COZAAR) 100 MG tabletIndications :Essential hypertension Take 1 tablet (100 mg total) by mouth daily. 90 tablet 1 5 Active Blood Glucose Monitoring Suppl (ONE TOUCH ULTRA 2) w/Device KitIndications:Ty pe 2 diabetes mellitus with hyperglycemia, without long-term current use of insulin ([facility]) Check daily 1 kit 5 Active Lancets MiscIndications:T ype 2 diabetes mellitus with hyperglycemia, without long-term current use of insulin ([facility]) Use daily 100 each 2 5 Active ARMOUR THYROID 30 MG tabletIndications :Hypothyroidism, unspecified type TAKE 1 TABLET BY MOUTH DAILY 90 tablet 3 5 Active Active Problems Problem Noted Date Diagnosed Date Mixed hyperlipidemia 01/10/2020 Discoloration of skin of finger 01/10/2020 Hypothyroidism, unspecified type 01/28/2019 Depression 06/23/2018 Obesity (BMI 30.0-34.9) 06/23/2018 Essential hypertension 04/07/2014 Resolved Problems Problem Noted Date Diagnosed Date Resolved Date Type 2 diabetes mellitus wit hout complication, without long-term current use of insulin 03/30/2019 10/04/2022 Vasovagal syncope 07/02/2018 07/06/2019 Vertigo 07/02/2018 07/06/2019 Dizziness 06/23/2018 07/06/2019 History of syncope 06/23/2018 0 Chest pain 06/22/2018 07/06/2019 Pelvic pain in female 03/09/20182019 Fibroadenoma of breast, left 02/24/2018 07/06/2019 Sore throat 11/29/2016 07/06/2019 Viral sinusitis 07/03/2016 07/06/2019 Constipation 06/08/2015 07/06/2019 Skin lesion 06/08/2015 07/06/2019 Vaginal dryness 06/08/2015 07/06/2019 Fatigue 05/05/2015 07/06/2019 Numbness and tingling of foot 05/05/2015 07/06/2019 Hyperglycemia 03/02/2015 07/06/2019 Excessive sleepiness 04/07/2014 020 Encounters Date Type Department Care Team Description 02/14/2025 Telephone [facility] Family Medicine - [place] [address] [place] [address] Lanette Greene NP Orders (Cologuard/) 01/05/2025 Scan HEALTH INFO SRVCS Scanned, Doc Med [facility] Ultrasound (SCAN) from Last 3 Months Family History Medical History Relation Comments Depression Brother 1 Bipolor disorder Heart Disease Brother 1 Hypertension Brother 1 Vision loss Brother 1 Issues with corn ea causing distorted vision Diabetes Brother 2 Type 2 Cancer Father of liver an d colon cancer that metastisized Hypertension Father Cancer Maternal Aunt 1 Breast cancer Diabetes Maternal Aunt 2 Pre diabetic Alcohol Abuse Maternal Grandfather Cirrhosis o f liver Arthritis Maternal Grandmother Cancer Mother Hypertension Mother Cancer Paternal Grandfather Skin cancer Thyroid Paternal Grandfather Cancer Paternal Grandmother Breast canc er Cancer Paternal Uncle Bone cancer, i b elieve? Relation Status Comments Brother 1 Alive Brother 2 Alive Father Maternal Aunt 1 Alive Maternal Aunt 2 Alive Maternal Grandfather Maternal Grandmother Mother Alive Paternal Grandfather Paternal Grandmother Paternal Uncle Social History Tobacco Use Types Packs/Day Years Used Date Smoking Tobacco: Never Passive Smoke Exposure: Never Smokeless Tobacco: Never Tobacco Cessation:Counseling Given: Not Answered Alcohol Use Standard Drinks/Week Comments Never 0 (1 standard drink = 0.6 oz pur e alcohol) PHQ-2 Answer Date Recorded Patient Health Questionnaire-2 Score 0 12/15/2024 Comments No Sex and Gender Information Value Date Recorded Sex Assigned at Not on file Legal Sex Female 10:34 PM CDT Gender Identity Not on file Sexual Orientation Not on file Last Filed Vital Signs Vital Sign Reading Time Taken Comments Blood Pressure 138/78 12/15/2024 9:26 AM CDT Pulse 90 12/15/2024 8:50 AM CDT Temperature 36.7 C (98.1 F) 12/15/2024 8:50 AM CDT Respiratory Rate 18 04/15/2024 8:01 AM PARTS PROFESSIONAL Oxygen Saturation 96% 12/15/2024 8:50 AM CDT Inhaled Oxygen Concentration - - Weight 69.3 kg (152 lb 11.2 oz) 12/15/2024 8:50 AM CDT Height 149.9 cm (4' 11) 12/15/2024 8:50 AM CDT Body Mass Index 30.84 12/15/2024 8:50 AM CDT Plan of Treatment Upcoming Encounters Date Type Department Care Team (Late st Contact Info) Description 04/28/2025 7:40 AM PARTS PROFESSIONAL Office Visit [facility] Family Medicine - [address] [phone] Lanette Greene NP [address] [place] [address] Health Maintenance Due Date Last Done Comments Cervical Cancer Screening Pap Smear (Age 30 to 64) Every 3 Years 1976 Colorectal Cancer Screening Colonoscopy (10 Years) 1976 Kidney Health Evaluation 1976 Diabetes: Retinopathy Eye Exam 01/25/1994 Hepatitis C 01/25/1994 DTaP, Tdap and Td Vaccines (1 - Tdap) 01/25/1995 Hepatitis B Vaccines (1 of 3 - 19+ 3-dose series) 01/25/1995 Pneumococcal Vaccine: Pediatrics (0 to 5 Years) and At-Risk Patients (6 to 49 Years) (1 of 2 - PCV) 01/25/1995 Cervical Cancer Screening Pap with HPV Testing (Age 30 to 64) Every 5 Years 08/09/2021 08/09/2016 Cervical Cancer Screening with HPV 08/09/2021 Annual Physical 10/13/2021 10/13/2020, 01/28/2019 COVID-19 Vaccine ( season) 2025 Influenza Adult (#1) 2025 Lipid Panel 04/17/2025 04/17/2024, 07/25, 10/12/2021, Additional history exists Hemoglobin A1C 06/19/2025 12/17/2024, 03/27, 08/21/2023, Additional history exists Mammogram Screening 10/26/2026 10/26/2024, 05/21/2018, 05/20/2018 PHQ-2 ([facility]) Completed 12/15/2024 Hepatitis A Vaccines Aged Out No long er eligible based on patient's age to complete this topic Meningococcal B Vaccine Aged Out No l onger eligible based on patient's age to complete this topic Meningococcal Vaccine Aged Out No theo julian eligible based on patient's age to complete this topic RSV Immunizations Under 20 Months Aged Out No longer eligible based on patient's age to complete this topic Procedures Procedure Name Priority Date/Time Associated Diagnosis Comments ULTRASOUND GENERIC (SCAN ORDER) 01/05/2025 HEMOGLOBIN, GLYCOSYLATED Routine 12/17/2024 1:24 PM CDT Type 2 diabetes mellitus with hyperglycemia, without long-term current use of insulin ([facility]) MAMMOGRAM GENERIC (SCAN ORDER) 10/26/2024 LIPID PANEL Routine 04/17/2024 10:40 AM PARTS PROFESSIONAL OUTSIDE CYTOPATH CERV/VAG INTERPRET (PAP) 08/09/2016 from Last 3 Months or Most Recently Relevant to Health Maintenance Results * ULTRASOUND GENERIC (SCAN ORDER) (01/05/2025) Anatomical Region Laterality Modality Other 01/05/2025 [employer] [facility] Scanned SCANNING Final Resu lt * HEMOGLOBIN, GLYCOSYLATED (12/17/2024 1:24 PM CDT) HGB A1C 6.2 % [facility] 12/17/2024 1:24 PM CDT Result [facility] Lanette Greene LABORATORY Final Result [facility] [address] [place] [address], [place] [phone] * MAMMOGRAM GENERIC (SCAN ORDER) (10/26/2024) Anatomical Region Laterality Modality Other 10/26/2024 [employer] [facility] Scanned SCANNING Final Resu lt * (ABNORMAL) LIPID PANEL (04/17/2024 10:40 AM PARTS PROFESSIONAL) CHOLESTEROL 255(H) <200 mg/dL [facility] [employer] [facility] HDL 73 > OR = 50 mg/dL [employer] [facility] TRIGLYCERIDES 110 <150 mg/dL [facility] [employer] [facility] LDL (CALCULATED) 159(H) mg/dL (calc) [facility] [employer] [facility] Comment: Reference range: <100 Desirable range <100 mg/dL for primary prevention; <70 mg/dL for patients with CHD or diabetic patients with > or = 2 CHD risk factors. LDL-C is now calculated using the Chace-Herbie calculation, which is a validated novel method providing better accuracy than the Friedewald equation in the estimation of LDL-C. Chace SS et al. BAKARI. 2013;310(19): 5667-2492 (http://education.Heyday.Driftrock/faq/MRS270) CHOL/HDL RATIO 3.5 <5.0 (calc) [facility] NON HDL CHOLESTEROL 182(H) <130 mg/dL (calc) [facility] Comment: For patients with diabetes plus 1 major ASCVD risk factor, treating to a non-HDL-C goal of <100 mg/dL (LDL-C of <70 mg/dL) is considered a therapeutic option. 04/17/2024 10:4 0 AM PARTS PROFESSIONAL 04/17/2024 10:41 AM PARTS PROFESSIONAL Narrative [facility] - 04/18/2024 10:13 AM PARTS PROFESSIONAL FASTING:YES PATIENT UNABLE TO VOID; ADVISED TO RETURN FOR COLLECTION. FASTING: YES Resulting Agency Comment Performing Organization Information: Site ID: [id number] Name: [facility] Address: [address] [place] [address] Director: Cindy Hendricks MD Lanette Greene NP LABORATORY Final Result [facility] [employer] [facility] [address] [place] [address], * PAP SMEAR WITH HPV (08/09/2016) 08/09/2016 [facility] Scanned SCANNING Final Resu lt from Last 3 Months or Most Recently Relevant to Health Maintenance Insurance Care Teams Plate Worker Helper Relationship Specialty Start Date End Date Lanette Greene NP [address] [place] [address] PCP - General NURSE PRACTITIONER 10/23/23 Harjinder Devine MD Sathish Registered Dietetic Technician CARDIOVASCULAR DISEASE 06/15/18
--- OUTSIDE RECORDS SUMMARY | 2025-04-04 00:30 | XMS_ITS | Encounter Summary ---
Author Organization [facility] Address [address] [place] [address] Care Team Providers Care Global Regulatory Affairs Manager Name Role Phone Harjinder Devine MD Unavailable [phone] Clare Jay COLON THERAPIST Primary Care Provider Unavaila Lanette Hoover COLON THERAPIST Primary Care Provider [phone] Encounter Details Date Type Department Care Team (Late st Contact Info) Description 07/06/2021 Black House Message Enc [facility] Family Medicine [address] [phone] Clare Jay, COLON THERAPIST [place] Thyroid 30 mg Social History Tobacco Use Types Packs/Day Years Used Date Smoking Tobacco: Never Smokeless Tobacco: Never Alcohol Use Standard Drinks/Week Comments Never 0 (1 standard drink = 0.6 oz pur e alcohol) PHQ-2 Answer Date Recorded PHQ-2 Score - If the patient scores above 3, please move on to questions 3-9 0 04/23/2021 Comments No Sex and Gender Information Value Date Recorded Sex Assigned at Not on file Legal Sex Female 10:34 PM CDT Gender Identity Not on file Sexual Orientation Not on file documented as of this encounter Progress Notes * Charles Wilson RN - 07/06/2021 1:41 PM CST RX pended to Clare for approval or refusal. Last visit with CLARE JAY in FAMILY PRACTICE was on: 10/13/2020 in [facility] Next visit with CLARE JAY in FAMILY PRACTICE is on: No match found [place] CLERK * Charles Wilson RN - 07/06/2021 1:40 PM CSTFrom: Amy Beatty To: Clare Jay Sent: 07/06/2021 9:59 AM RETAIL CLERK Subject: [place] Thyroid 30 mg Hello: Please may I have a prescription for [place] Thyroid 30mg sent over to [facility] on [address] [facility]? I have a few more left and the previous pharmacy I was getting them thru doesn???t take my insurance. Thank you! Sincerely, Amy Beatty [place] CLERK documented in this encounter Plan of Treatment Upcoming Encounters Date Type Department Care Team (Late st Contact Info) Description 04/28/2025 7:40 AM RETAIL CLERK Office Visit [facility] Family Medicine [address] [phone] Lanette Greene NP [address] [place] [address] [place] [address] documented as of this encounter Visit Diagnoses Diagnosis Hypothyroidism, unspecified type documented in this encounter Additional Health Concerns Assessment Noted Time PHQ-9 Depression Total Score: 0 04/23/20 21 12:44 PM RETAIL CLERK documented as of this encounter Care Teams Global Regulatory Affairs Manager Relationship Specialty Start Date End Date Clare Jay NP PCP - General NURSE PRACTITIONER 12/13/19 10/22/23 Lanette Greene [place] [address] PCP - General NURSE PRACTITIONER 10/23/23 Harjinder Devine MD Sathish Recreation Therapy Teacher CARDIOVASCULAR DISEASE 06/15/18 documented as of this encounter
--- OUTSIDE RECORDS SUMMARY | 2025-04-04 00:30 | XMS_ITS | Encounter Summary ---
Author Organization [facility] Address [address] [place] [address] Care Team Providers Care Hydrotel Operator Name Role Phone Harjinder Devine MD Unavailable [phone] Ora Jay MERCHANDISER Primary Care Provider Unavaila Lanette Hoover NP Primary Care Provider [phone] Encounter Details Date Type Department Care Team (Late st Contact Info) Description 03/11/2021 Smart Energy Message Enc [facility] Family Medicine [address] [phone] Ora Jay, MERCHANDISER RE: FW: Medication Questions Social History Tobacco Use Types [...] Progress Notes * David Miller MA - 03/14/2021 7:34 AM CDT JESSIE * David Miller MA - 03/12/2021 9:17 AM CDT FYI, I have faxed the order to [facility]. Please see the rest of the note. documented in this encounter Plan of Treatment Upcoming Encounters Date Type Department Care Team (Late st Contact Info) Description 04/28/2025 7:40 AM TRACK GRINDER Office Visit [facility] Family Medicine - [place] [address] [place] [address] Lanette Greene NP [address] [place] [address] documented as of this encounter Visit Diagnoses Not on filedocumented in this encounter Additional Health Concerns Assessment Noted Time PHQ-9 Depression Total Score: 10 020 11:12 AM CDT documented as of this encounter Care Teams Hydrotel Operator Relationship Specialty Start Date End Date Ora Jay NP PCP - General NURSE PRACTITIONER 12/13/19 10/22/23 Lanette Greene NP [address] [place] [address] PCP - General NURSE PRACTITIONER 10/23/23 Harjinder Devine MD Sathish Loss Control Consultant CARDIOVASCULAR DISEASE 06/15/18 documented as of this encounter
--- OUTSIDE RECORDS SUMMARY | 2025-04-04 00:30 | XMS_ITS | Encounter Summary ---
Author Organization [facility] Address [address] [place] [address] Care Team Providers Care Document Control Associate Name Role Phone Harjinder Devine MD Unavailable [phone] Ora Jay ROOM SERVICE FOOD SERVER Primary Care Provider Unavaila Lanette Hoover NP Primary Care Provider [phone] Encounter Details Date Type Department Care Team (Late Contact Info) Description 09/03/2023 ViSSee Message Enc [facility] [address] [place] [address] [facility] Provider LAb results Social History Tobacco Use Types Packs/Day [...] (Late Contact Info) Description 04/28/2025 7:40 AM CUSTOM VAN CONVERTER Office Visit [facility] [address] [place] [address] Lanette Greene NP [address] [place] [address] documented as of this encounter Visit Diagnoses Not on filedocumented in this encounter Additional Health Concerns Assessment Noted Time PHQ-9 Depression Total Score: 1 08/07/19 22 7:44 AM CDT documented as of this encounter Care Teams Document Control Associate Relationship Specialty Start Date End Date Ora Jay NP PCP - General NURSE PRACTITIONER 12/13/19 10/22/23 Lanette [place] [address] PCP - General NURSE PRACTITIONER 10/23/23 Harjinder Devine MD Sathish Budget Counselor CARDIOVASCULAR DISEASE 06/15/18 documented as of this encounter
--- OUTSIDE RECORDS SUMMARY | 2025-04-04 00:30 | XMS_ITS | Encounter Summary ---
Author Organization [facility] Address [address] [place] [address] Care Team Providers Care Cap Machine Operator Name Role Phone Harjinder Devine MD Unavailable [phone] Ora Jay GALLERY HOST Primary Care Provider Unavaila Lanette Hoover NP Primary Care Provider [phone] Encounter Details Date Type Department Care Team (Late Contact Info) Description 07/26/2021 nanoRETE Message Enc [facility] [address] [place] [address] [facility] Provider Appointment Request Social History Tobacco Use Types Packs/Day Years [...] (Late Contact Info) Description 04/28/2025 7:40 AM MEDICAL INSURANCE CLAIMS SPECIALIST Office Visit [facility] [address] [place] [address] Lanette Greene NP [address] [place] [address] documented as of this encounter Visit Diagnoses Not on filedocumented in this encounter Additional Health Concerns Assessment Noted Time PHQ-9 Depression Total Score: 0 04/23/20 21 12:44 PM MEDICAL INSURANCE CLAIMS SPECIALIST documented as of this encounter Care Teams Cap Machine Operator Relationship Specialty Start Date End Date Ora Jay GALLERY HOST PCP - General NURSE PRACTITIONER 12/13/19 10/22/23 Lanette [place] [address] PCP - General NURSE PRACTITIONER 10/23/23 Harjinder Devine MD Sathish Wood Carver Hand CARDIOVASCULAR DISEASE 06/15/18 documented as of this encounter
--- OUTSIDE RECORDS SUMMARY | 2025-04-04 00:30 | XMS_ITS | Encounter Summary ---
Author Organization [facility] Address [address] [place] [address] Care Team Providers Care Fishing Floats Assembler Name Role Phone Harjinder Devine MD Unavailable Ora Jay BULK SEALER OPERATOR Primary Care Provider Unavaila Lanette Hoover BULK SEALER OPERATOR Primary Care Provider [phone] Encounter Details Date Type Department Care Team (Late Contact Info) Description 07/24/2021 DTT Message Enc [address] [phone] [facility] Provider Losartan Social History Tobacco Use Types Packs/Day [...] Progress Notes * David Miller MA - 07/24/2021 9:22 AM CST See below. TINTER documented in this encounter Plan of Treatment Upcoming Encounters Date Type Department Care Team (Late Contact Info) Description 04/28/2025 7:40 AM HAIR TINTER Office Visit [address] [place] [phone] Lanette Greene NP [address] [place] [address] documented as of this encounter Visit Diagnoses Not on filedocumented in this encounter Additional Health Concerns Assessment Noted Time PHQ-9 Depression Total Score: 0 04/23/20 21 12:44 PM HAIR TINTER documented as of this encounter Care Teams Fishing Floats Assembler Relationship Specialty Start Date End Date Ora Jay NP PCP - General NURSE PRACTITIONER 12/13/19 10/22/23 Lanette Greene [place] [address] PCP - General NURSE PRACTITIONER 10/23/23 Harjinder Devine MD Sathish Safety Analyst CARDIOVASCULAR DISEASE 06/15/18 documented as of this encounter
--- OUTSIDE RECORDS SUMMARY | 2025-04-04 00:30 | XMS_ITS | Clinical Summary ---
Author Organization [facility] Address [address], [facility] [address] [place] [address] Phone Care Team Providers Care Sound Printer Name Role Phone Lanette Greene POLICY LOAN CALCULATOR Primary Care Provider [phone] Reg Dang MD Unavailable [phone] Allergies Active Allergy Reactions Criticality Noted Date [...] 30 mg by mouth daily. 04/07/2024 Active Cinnamon 500 MG Capsule 07/24/2021 Active Cholecalciferol (Dialyvite Vitamin D 5000) 125 mcg Capsule Take 125 mcg by mouth daily. Active Apple Cider Vinegar 300 MG Tablet 08/13/2021 Active fluticasone (FLONASE) 50 MCG/ACT Suspension 1-2 Sprays by Nasal route daily. 07/28/2021 Active Multi Vitamin/Mineral s Tablet Active triamcinolone acetonide (NASACORT) 55 MCG/ACT Aerosol 2 Sprays by Nasal route. Active ELITE ZINC PO Active Magnesium Oxide -Mg Supplement 250 MG Tablet Take 250 mg by mouth. Active losartan (COZAAR) 100 MG Tablet Take 100 mg by mouth daily. 04/23/2024 Active Ascorbic Acid (Vitamin C) 500 MG Chewable Tablet Take 2 Tablets by mouth. 06/23/2018 Active Blood Glucose Monitoring Suppl (ONE TOUCH ULTRA 2) w/Device Kit TEST D 02/08/2019 Active DULoxetine (CYMBALTA) [address] Particles Take 60 mg by mouth daily. Active Ferrous Sulfate 90 (18 Fe) MG Tablet 11/04/2021 Active lutein 20 MG Tablet Active Active Problems Problem Noted Date Diagnosed Date HTN (hypertension) 07/29/2024 Iron deficiency anemia, unspecified 06/07/2024 Elevated blood pressure reading 05/28/2024 Anemia of unknown etiology 05/28/2024 Thrombocytosis 05/28/2024 Encounters Date Type Department Care Team Description 03/29/2025 8:00 AM CLIENT RESOLUTION SPECIALIST Lab [facility] [address] [id number] Lab, [facility] [place] Iron deficiency anemia, unspecified iron deficiency anemia type; Thrombocytosis 03/29/2025 Travel 03/15/2025 8:00 AM CDT Clinical Support [facility] [address] [id number] Nurse, [facility] [place] Iron deficiency anemia, unspecified iron deficiency anemia type (Primary Dx) 03/15/2025 Travel 03/01/2025 Telephone [facility] [address] [phone] Reg Dang MD 02/24/2025 8:35 AM CDT Lab [facility] [address] [id number] Lab, [facility] [place] Iron deficiency anemia due to chronic blood loss; Thrombocytosis; Iron deficiency anemia, unspecified iron deficiency anemia type; Other fatigue; Pica 02/24/2025 8:00 AM CDT Office Visit [facility] [address] [phone] Jing Olsen APRN, CNP Iron deficiency anemia due to chronic blood loss (Primary Dx); Thrombocytosis; Other fatigue; Pica 02/24/2025 Results Follow-Up [facility] [address] [phone] Jing Olsen APRN, JODY IRON W/ IRON BINDING CAPACITY [place], FERRITIN, CMP (COMPREHENSIVE METABOLIC PANEL), CBC WITH AUTO DIFF [place] 02/24/2025 Travel from Last 3 Months Family History Medical History Relation Name Comments Diabetes Brother 2 Heart Disease Brother 2 Hypertension Brother 2 Colon Cancer Father Colon Cancer Mother Hypertension Mother Relation Name Status Comments Brother [...] Sign Reading Time Taken Comments Blood Pressure 110/60 03/15/2025 8:25 AM CDT Pulse 99 03/15/2025 8:25 AM CDT Temperature 36.9 C (98.4 F) 03/15/2025 8:05 AM CDT Respiratory Rate 16 03/15/2025 8:25 AM CDT Oxygen Saturation 99% 03/15/2025 8:25 AM CDT Inhaled Oxygen Concentration - - Weight 69.3 kg (152 lb 11.2 oz) 02/24/2025 8:12 AM CDT Height 149.9 cm (4' 11) 02/24/2025 8:12 AM CDT Body Mass Index 30.84 02/24/2025 8:12 AM CDT Plan of Treatment Upcoming Encounters Date Type Department Care Team (Late st Contact Info) Description 06/30/2025 8:00 AM CLIENT RESOLUTION SPECIALIST Office Visit [facility] [address] [phone] Reg Dang MD [facility] [address] [place], [place] [id number] Health Maintenance Due Date Last Done Comments Hepatitis C Virus (HCV) Screening 1975 Mammogram 1975 TdaP Immunization 1975 Hepatitis B Immunization (1 of 3 - 19+ 3-dose series) 01/25/1995 Pap Smear 01/25/1997 Cervical Cancer Screening (CCS) 01/25/2006 HPV/Cotest 01/25/2006 Discussion re Starting/Frequ ency of Mammograms 2016 Cologuard 01/25/2021 Colonoscopy 01/25/2021 Colorectal Cancer Screening 01/25/2021 Immunochemical Fecal Occult Blood 01/25/2021 Influenza Immunization (#1) 2025 SARS-COV-2 Immunization ( season) 2025 Respiratory Syncytial Virus (RSV) Immunization (Adult) [...] Comments CBC WITH AUTO DIFF [place] Routine 03/29/2025 8:08 AM CLIENT RESOLUTION SPECIALIST CBC WITH AUTO DIFF [place] Routine 02/24/2025 8:38 AM CDT CMP (COMPREHENSIVE METABOLIC PANEL) Routine 02/24/2025 8:38 AM CDT Iron deficiency anemia due to chronic blood loss Thrombocytosis Iron deficiency anemia, unspecified iron deficiency anemia type Other fatigue Pica FERRITIN Routine 02/24/2025 8:38 AM CDT Iron deficiency anemia due to chronic blood loss Thrombocytosis Iron deficiency anemia, unspecified iron deficiency anemia type Other fatigue Pica IRON W/ IRON BINDING CAPACITY [place] Routine 02/24/2025 8:38 AM CDT Iron deficiency anemia due to chronic blood loss Thrombocytosis Iron deficiency anemia, unspecified iron deficiency anemia type Other fatigue Pica from Last 3 Months Results * (ABNORMAL) CBC WITH AUTO DIFF [place] (03/29/2025 8:08 AM CLIENT RESOLUTION SPECIALIST) Only the most recent of2 resultswithin the time period is included. WBC 7.5 4.0 - 10.0 10*3/uL [facility] HGB 12.0 11.2 - 15.7 g/dL [facility] HCT 38.0 34.1 - 44.9 % [facility] PLT 358 163 - 369 10*3/uL [facility] MPV 9.4 9.4 - 12.4 fL [facility] RBC 4.09 3.93 - 5.22 10*6/uL [facility] MCV 93 79 - 95 fL [facility] MCH 29.3 25.6 - 32.2 pg [facility] MCHC 31.6(L) 32.2 - 36.5 g/dL [facility] RDW 12.6 11.6 - 14.4 % [facility] Neutrophils % 63.8 36.0 - 66.0 % [facility] Lymphocytes % 27.0 19.0 - 40.0 % [facility] Monocytes % 5.3 4.1 - 12.1 % [facility] Eosinophils % 2.3 0.0 - 3.5 % [facility] Basophils % 0.5 0.0 - 1.0 % [facility] Absolute Neutrophils 4.8 1.4 - 6.6 10*3/uL [facility] Absolute Lymphocytes 2.0 0.8 - 4.0 10*3/uL [facility] Absolute Monocytes 0.4 0.2 - 1.2 10*3/uL [facility] Absolute Eosinophils 0.2 0.0 - 0.4 10*3/uL [facility] Absolute Basophils 0.0 0.0 - 0.1 10*3/uL [facility] 03/29/2025 8:08 AM CLIENT RESOLUTION SPECIALIST Reg Dang MD LAB SEND OUTS Final Result Performing Organization Address [facility]/ZIP Co de Phone Number [facility] [address] [place] [address], * (ABNORMAL) IRON W/ IRON BINDING CAPACITY [place] (02/24/2025 8:38 AM CDT) IRON 47(L) 50 - 212 ug/dL [facility] UIBC 311 155 - 355 ug/dL [facility] TIBC 358 261 - 478 ug/dl [facility] % Saturation 13(L) 20 - 50 % [facility] 02/24/2025 8:38 AM CDT Narrative [facility] 02/24/2025 9:26 AM CDT Release to patient->Immediate Jing Olsen APRN, C ARCHITECT LAB SEND OUTS Fin al Result Performing Organization Address [facility]/ZIP Co de Phone Number [facility] [address] [place] [address], * FERRITIN (02/24/2025 8:38 AM CDT) Ferritin 55 11 - 307 ng/mL [facility] Blood 02/24/2025 8:38 AM CDT Narrative [facility] 02/24/2025 2:43 PM CDT Release to patient->Immediate us Jing Olsen POLICY LOAN CALCULATOR, C ARCHITECT CHEMISTRY ORDERABLE S Final Result Performing Organization Address City/[facility]/ZIP Co de Phone Number [facility] [address] [place] [address], * (ABNORMAL) CMP (COMPREHENSIVE METABOLIC PANEL) (02/24/2025 8:38 AM CDT) Glucose 110(H) 70 - 105 mg/dL [facility] Blood Urea Nitrogen 21 7 - 25 mg/dL [facility] Creatinine 0.7 0.6 - 1.2 mg/dL [facility] Sodium 135(L) 136 - 145 mEq/L [facility] Potassium 4.4 3.5 - 5.1 mEq/L [facility] Chloride 100 98 - 107 mEq/L [facility] Bicarbonate 27 21 - 31 mEq/L [facility] Total Bilirubin 0.3 0.3 - 1.0 mg/dL [facility] Alk. Phosphatase 68 34 - 104 U/L [facility] Aspartate Aminotransferase 22 13 - 39 U/L [facility] Alanine Aminotransferase 20 7 - 52 U/L [facility] Total Protein 6.8 6.4 - 8.9 g/dL [facility] Albumin 4.4 3.5 - 5.7 g/dL [facility] Calcium 9.9 8.6 - 10.3 mg/dL [facility] Anion Gap 12.4 7.0 - 15.0 mEq/L [facility] Globulin 2.4 2.0 - 3.5 g/dL [facility] EGFR 106 >60 ml/min/1. 73m2 [facility] Comment: This eGFR is calculated using 2020 CKD-EPI Creatinine equation without race modifier based on the NKF-ASN task force recommendations Equation: aBRC=868*min(SCr/k,1)a*max(SCr/k,1)-1.200*0.9938Age*1.012 (if female), where SCr is serum creatinine, k is 0.7 for females and 0.9 for males, and a is -0.241 for females and -0.302 for males Blood 02/24/2025 8:38 AM CDT Narrative [facility] - 02/24/2025 9:26 AM CDT Release to patient->Immediate IS THE PATIENT REQUIRED TO BE FASTING FOR 8 HOURS?->No Jing Olsen APRN, C ARCHITECT CHEMISTRY ORDERABLE S Final Result [facility] [place] [address], from Last 3 Months Insurance [facility] Care Teams Sound Printer Relationship Specialty Start Date End Date Lanette [place] [address] PCP - General Advanced Practice Nurse 05/13/24 Reg Dang MD [address] [place] [phone] Consulting Physician Oncology 05/13/24
--- OUTSIDE RECORDS SUMMARY | 2025-04-04 00:30 | XMS_ITS | Clinical Summary ---
Author Organization [facility] Address [address] [place] [address] Care Team Providers Care Asphalt Surface Heater Operator Name Role Phone Koby Hernandez Primary Care [...] by mouth daily. Active FLAXSEED ORAL by [facility].(Non-Drug ; Combo Route) route daily. Active Lactobacillus [...] Q 5 years 01/25/2021 INFLUENZA VACCINE (#1) 2024 Procedures Procedure Name Priority Date/Time Associated Diagnosis Comments MAMMOGRAM REPORT Routine 02/09/2019 from Last 3 Months or Most Recently Relevant to Health Maintenance Results * MAMMOGRAM REPORT (02/09/2019) us Abstract Provider MAMMO ORDERABLES Edited Result - Final from Last 3 Months or Most Recently Relevant to Health Maintenance Insurance [employer] PPO [id number] Care Teams Asphalt Surface Heater Operator Relationship Specialty Start Date End [place] [address] PCP - General Family Practice 04/24/18
--- OUTSIDE RECORDS SUMMARY | 2025-04-04 00:30 | XMS_ITS | Encounter Summary ---
Author Organization [facility] Address [address] [place] [id number] Care Team Providers Care Patent Attorney Name Role Phone Harjinder Devine MD Unavailable [phone] Ora Jay VIOLIN REPAIRER Primary Care Provider Unavaila Lanette Hoover NP Primary Care Provider [phone] Encounter Details Date Type Department Care Team (Late st Contact Info) Description 12/21/2020 [place] Message Enc [facility] Family Medicine [address] [phone] Ora Jay NP RE: Other Social History Tobacco Use Types [...] Progress Notes * Ora Jay NP - 12/21/2020 4:11 PM CDT Thanks * Charles Wilson RN - 12/21/2020 3:44 PM CDTFrom: Amy Beatty To: Ora Jay Sent: 12/21/2020 3:42 PM CDT Subject: Other Hello: Thank you for the refill of my medication at [facility] in [place]. Please may I have Synthroid instead of Levothyroxine? Levothyroxine does not work as well for me. Sincerely, Amy Beatty documented in this encounter Plan of Treatment Upcoming Encounters Date Type Department Care Team (Late st Contact Info) Description 04/28/2025 7:40 AM GLASS POLISHER Office Visit [facility] Family Medicine - [address] [place] [address] Lanette Greene NP [address] [place] [address] documented as of this encounter Visit Diagnoses Diagnosis Hypothyroidism, unspecified type documented in this encounter Additional Health Concerns Assessment Noted Time PHQ-9 Depression Total Score: 10 020 11:12 AM CDT documented as of this encounter Care Teams Patent Attorney Relationship Specialty Start Date End Date Ora Jay NP PCP - General NURSE PRACTITIONER 12/13/19 10/22/23 Lanette Greene NP [address] [place], [place] [id number] PCP - General NURSE PRACTITIONER 10/23/23 Harjinder Devine MD Sathish Teletype Mechanic CARDIOVASCULAR DISEASE 06/15/18 documented as of this encounter
--- OUTSIDE RECORDS SUMMARY | 2025-04-04 00:30 | XMS_ITS | Encounter Summary ---
Author Organization [facility] Address [address] [place] [address] Care Team Providers Care Solar Water Heater Installer Name Role Phone Harjinder Devine MD Unavailable [phone] Lanette Greene NP Primary Care Provider [phone] Encounter Details Date Type Department Care Team (Late Contact Info) Description 04/06/2024 MyChart Message Enc [address] [address] Lanette Greene NP [address] [place] [address] Armor thyroid Social History Tobacco Use Types Packs/Day Years [...] (Late Contact Info) Description 04/28/2025 7:40 AM PACKING ATTENDANT Office Visit [address] [address] Lanette Greene NP [address] [place] [address] documented as of this encounter Visit Diagnoses Not on filedocumented in this encounter Additional Health Concerns Assessment Noted Time PHQ-9 Depression Total Score: 1 08/07/19 22 7:44 AM CDT documented as of this encounter Care Teams Solar Water Heater Installer Relationship Specialty Start Date End Date Lanette [place] [address] PCP - General NURSE PRACTITIONER 10/23/23 Harjinder Devine MD Sathish Sr. Vendor Management Associate CARDIOVASCULAR DISEASE 06/15/18 documented as of this encounter
--- NOTE | 2025-04-04 07:14 | WPDHPUPDATE1 ---
History and Physical Update Update Date/Time: 04/04/25 07:14 History and Physical has been reviewed, including an updated exam of the patient. There are NO changes in the patient's condition. Risks, benefits, and alternatives have been discussed and questions answered. Patient agrees to proceed with Hysteroscopy with D&C.
[2025-04-04 07:30] VITALS: BP 151/94; PULSE 115; RESP 16; TEMP 36.1; O2SAT 98
[2025-04-04] MEDS: LACTATED RINGERS 1,000 ML 30 ML IV CONT (07:30)
--- NOTE | 2025-04-04 07:45 | WPDANESEPPF ---
Anes - Initial Pre Proc Eval Procedure: Operation Date: 04/04/25 09:00 Proposed Procedures p Hysteroscopy Dilation and Curettage - Minnie Ventura MD Date/Time: 04/04/25 07:45 Surgeon: Minnie Ventura MD Pre Op Diagnosis: Abnormal Uterine Bleeding Patient Data Age: 50 Gender: F Height: 1.5 m Weight: 68.8 kg Allergies Allergy/AdvReac Type Severity Reaction Status Date / Time amlodipine Allergy Unknown throat Verified 03/28/25 10:57 swollen ketotifen Allergy Unknown swelling Verified 03/28/25 10:57 latex Allergy Unknown Rash Verified 03/28/25 10:57 Penicillins Allergy Unknown Unknown Verified 03/28/25 10:57 cyanocobalamin (vitamin B12) AdvReac Severe Anaphylaxis Verified 03/28/25 10:57 levothyroxine AdvReac Severe throat Verified 03/28/25 10:57 swelling metformin AdvReac Severe throat Verified 03/28/25 10:57 swelling hydrochlorothiazide AdvReac Intermediate throat Verified 03/28/25 10:57 swelling lisinopril AdvReac Intermediate Dizziness Verified 03/28/25 10:57 pantoprazole AdvReac Intermediate shaking Verified 03/28/25 10:57 and nerve pain dimethicone AdvReac Unknown Unknown Verified 03/28/25 10:57 zinc oxide AdvReac Unknown Unknown Verified 03/28/25 10:57 NAPROXEN SODIUM Allergy Mild RINGING IN Uncoded 01/27/25 10:54 EARS Home Medications ?Medication ?Instructions ?Recorded ?Confirmed ?Type ascorbic acid (vitamin C) 500 mg 500 mg PO DAILY 12/23/24 03/28/25 History capsule duloxetine 60 mg capsule,delayed 60 mg PO HS 12/23/24 03/28/25 History release ferrous sulfate 137 mg (45 mg 137 mg PO DAILY 12/23/24 03/28/25 History iron) tablet,extended release losartan 100 mg tablet 100 mg PO DAILY 12/23/24 03/28/25 History lutein 20 mg capsule 20 mg PO DAILY 12/23/24 03/28/25 History magnesium 250 mg tablet 250 mg PO DAILY 12/23/24 03/28/25 History multivitamin 1 tablet PO DAILY 12/23/24 03/28/25 History thyroid (pork) 30 mg tablet 30 mg PO DAILY 12/23/24 03/28/25 History (Rudolph Thyroid) acetaminophen 500 mg tablet 1,000 mg (2 x 500 mg) PO TID #60 04/04/25 Rx tabs ibuprofen 800 mg tablet 800 mg PO TID #30 tabs 04/04/25 Rx Patient hx anesthesia problems: none Family hx anesthesia problems: none Results Review: All pre-operative results and documents have been reviewed as part of the pre-operative evaluation. 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 removed [place] teeth extracted Family History Family History Mother Colon cancer Hypertension Grandparent Alcoholism Skin cancer Breast cancer Father Liver cancer Hypertension Sibling Hypertension Heart disease Diabetes mellitus Aorta disorder brother Social History Social History Smoking status: Never smoker Alcohol intake: never Substance use: never Substance use type: does not use Do You Feel Safe in your Home?: Yes Lack of Transportation: No Lack of Food: Never True Current Housing: I Have Housing Concerned About Future Housing: No Difficulty Paying Gas/Electric Bills: No Difficulty Paying for Meds: No Currently Unemployed: No Education: Master's Degree or Higher Difficulty w/ Childcare or Family Care: No Living arrangements: with family Occupation/Education: occupation Additional occupation/education comments: homemaker Spiritual care concerns: No Anes - Eval Final PreProcedure Day of Procedure 04/04/25 07:45 Patient weight: obese Heart: regular rate and rhythm Lungs: clear to auscultation Airway: Mallampati scale class II Neurological: alert and oriented Last oral intake: >/= 8 hours ASA classification: III Emergent: no Anesthetic plan: proceed Anesthesia type and monitoring: general GIVS and standard monitoring Results Review: All pre-operative results and documents have been reviewed as part of the pre-operative evaluation. Informed Consent: The patient's anesthetic plan and its attendant risks and benefits were discussed with the patient/family/POA. Questions were solicited and answers provided to the satisfaction of the patient/family/POA.
[2025-04-04] MEDS: ACETAMINOPHEN 500 MG TABLET 1000 MG PO (07:50)
[2025-04-04] MEDS: MIDAZOLAM HCL (*CRX) 2 MG/2 ML VIAL IV PUSH (08:12)
[2025-04-04 08:13] LABS: BEDSIDEPREGUCG Negative (Negative)
--- NOTE | 2025-04-04 08:59 | S_PTH ---
PATIENT: Amy Beatty LOC: [facility] U#:[id number] AGE/SX: 50/F ROOM: RE04/04/[address]: Minnie Ventura MD : 1975 BED: DIS: 04/04/2025 SPEC #: [id number] RECD: 04/04/25 09:40 STATUS: NICK RERaysa #: [id number] ALIYA: 04/04/25 08:[address]: Minnie Ventura DEPT: [facility] Surgical RECD BY: Portia Hernandez ENTERED: 04/04/25 09:40 SP TYPE: Surgical OTHR DR: Lanette Greene, SUPERVISOR FERTILIZER Tissues: A - Endometrial Curettings Procedures: Hematoxylin and Eosin Stain Gross and Microscopic Level 4
[2025-04-04 09:21] VITALS: BP 138/80; PULSE 93; RESP 16; O2SAT 95
--- NOTE | 2025-04-04 09:22 | P.OP_ITS ---
Procedure Note - Detailed Date of Procedure 04/04/25 Pre-op Diagnosis Abnormal Uterine Bleeding Post-op Diagnosis Other (Endometrial polyps) Procedure Performed Hysteroscopy with D&C Surgeon Minnie Ventura MD Anesthesia MAC Findings Uterus sounded to 9.5cm; normal appearing cervix. Endometrium profusely thicke chi with multiple polyps noted throughout the entire cavity. Good hemostasis at end of case. Fluid deficit: 20cc Description of Procedure Amy was taken to the operating room where she was placed under sedation without complications. She was then prepped and draped in the usual sterile fashion in the dorsal lithotomy position with her legs in low Abdoulaye stirrups. A time-out was performed and no perioperative antibiotics were indicated. A bivalve speculum was placed within the vagina where the cervix was easily identified. The anterior lip of the cervix was grasped with a single-tooth tenaculum. The uterus was sounded. The cervix was then serially dilated to allow for the hysteroscope. The hysteroscope was advanced into the uterine cavity with the above findings noted. A curettage was then performed until a good uterine cry was felt throughout the uterus. A significant amount of tissue was removed. The hysteroscope was advanced back into the cavity the verify all polyps had been removed. Good hemostasis was noted. All instruments were removed from the vagina. Sponge, lap, instrument, and needle counts were correct at the end of the procedure. Patient was awoken from anesthesia and taken to recovery with plans of same-day discharge home. Estimated Blood Loss 10 IV Fluids 700 Pathology Yes (endometrial curettings) Complications No immediate complications Condition Stable Disposition Same day [facility] Billing Surgery - Charge Forward: Surgery Billing
[2025-04-04 09:50] VITALS: BP 127/63; PULSE 92; RESP 16; O2SAT 95
[2025-04-04 10:20] VITALS: BP 142/84; PULSE 87; RESP 16
== END 2025-04-04 10:48 | disposition home or self-care (01) ==
PROVIDERS: PCP Nurse Practitioner; Visit Provider Obstetrics & Gynecology
PROC: 0U5B8ZZ Destruction of Endometrium, Via Natural or Artificial Opening Endoscopic (ICD-10-PCS; CPT 58563; principal; 2025-04-04 09:00)
DX: N92.0 Excessive and frequent menstruation with regular cycle (principal); N84.0 Polyp of corpus uteri; D50.9 Iron deficiency anemia, unspecified; E11.9 Type 2 diabetes mellitus without complications; E66.9 Obesity, unspecified; Z68.30 Body mass index [BMI] 30.0-30.9, adult
CPT/HCPCS: 58558; 82948; 88305; A9270; J2003; J2250; J2704; J3010; J7120